=== PATIENT | female | born 1995 | race Caucasian/White ===

== ENCOUNTER 2020-06-06 16:55 | Outpatient (CLI) | payer OTHER, BC, SELFPAY ==
--- NOTE | ~2020-06-06 | US_ITS ---
EXAMINATION: US OB <= 14 weeks fetus EXAM DATE: 06/06/2020 17:58 INDICATION: Other specified irregular menstruation. Dating. 1st trimester. TECHNIQUE: Pelvic obstetrical transabdominal sonogram was performed by a technologist. There are mu ltiple grayscale and Doppler images available for interpretation. There are no earlier studies of th is gestation for comparison. FINDINGS: Uterus measures 11.0 x 6.1 x 8.0 cm. There is intrauterine gestation sac. pole with heart rate confirmed at 169 beats per minute. The 4.6 cm crown-rump length corresponds to estimated gestational age by ultrasound of 11 weeks 3 days, estimated date of confinement 12/23/2020. Yolk sac is identified. There is no sonographic evidence of subchorionic hemorrhage. Not identified IMPRESSION: Live intrauterine gestation, age by ultrasound 11 weeks 3 days. Reviewed, dictated and finalized at location . CLING DIRECTOR
== END 2020-06-06 16:56 | disposition home or self-care (01) ==
PROVIDERS: PCP Internal Medicine; Visit Provider Obstetrics & Gynecology
DX: Z34.91 Encounter for supervision of normal pregnancy, unspecified, first trimester (principal); Z3A.11 11 weeks gestation of pregnancy
CPT/HCPCS: 76801

== ENCOUNTER 2020-06-19 16:54 | Outpatient (CLI) | payer OTHER, BC, SELFPAY ==
[2020-06-19 17:34] LABS: Hematocrit 39.4 % (37.0-47.0); Hemoglobin 13.7 g/dL (12.0-15.0); Mean Corpuscular HGB Conc 34.8 g/dl (32-36); Mean Corpuscular Hemoglobin 32.2 pg (26-34); Mean Corpuscular Volume 92.7 fl (80-100); Mean Platelet Volume 10.9 fl (7.4-10.4); Platelet Count Result 271 k/mm3 (150-375); Red Blood Count 4.25 M/mm3 (4.2-5.4); Red Cell Distribution Width 11.3 % (11.5-14.5); White Blood Count 7.6 K/mm3 (4.5-10.0)
[2020-06-19 18:30] LABS: HIV 1/2 Ab P24 Ag Result Negative (Negative)
[2020-06-19 19:04] LABS: Hepatitis B Surface Antigen Negative (Negative); Rubella IgG Antibody 55.5 IU/ML
[2020-06-20 11:13] LABS: Rapid Plasma Reagin Non-Reactive (NonReactive)
== END 2020-06-19 16:55 | disposition home or self-care (01) ==
LOC: ANHLAB 16:57
PROVIDERS: PCP Internal Medicine; Visit Provider Obstetrics & Gynecology
DX: N92.5 Other specified irregular menstruation (principal)
CPT/HCPCS: 36415; 84702; 85027; 86592; 86644; 86703; 86747; 86762; 86787; 86900; 86901; 87086; 87340; G0432

== ENCOUNTER 2020-09-01 09:03 | Outpatient (CLI) | payer OTHER, SELFPAY ==
--- NOTE | ~2020-09-01 | US_ITS ---
EXAMINATION: US OB /maternal detail DATE: 09/01/2020 12:21 INDICATION: Routine care. TECHNIQUE: Real-time ultrasound of the pelvis was performed. COMPARISON: Ultrasound 06/06/2020 FINDINGS: There is a single living fetus in breech presentation. The placenta is anterior, 8 cm from the cervi x. heart rate is 138 beats per minute (bpm). The cervical length is normal on transabdominal im ages. The amniotic fluid volume is subjectively normal. The following biometric data were obtained: Biparietal diameter (BPD): 5.5 cm; head circumference (HC): 20.8 cm; abdominal circumference (AC): 17 .7 cm; femur length (FL): 3.9 cm. These measurements are concordant. Estimated weight is 512 g +/- 77 g, which correlates with 10th percentile when 12/26/20 is used a s estimated date of delivery. As single measurements, these parameters are each equal to the following estimated gestational ages: BPD: 22 weeks 5 days. HC: 22 weeks 6 days. AC: 22 weeks 4 days. FL: 22 weeks 2 days. estimated gestational age based solely on measurements from this exam is 22 weeks 4 days +/- 1 weeks 4 days. The cerebral ventricles, cerebellum, cisterna magna, nuchal fold, and visualized portions of the spin e are normal. The heart is normal. The diaphragm, stomach, kidneys, and bladder are normal. There are two umbilical arteries to yield a 3-vessel cord. The cord insertion is normal. IMPRESSION: 1. Single living fetus in breech presentation. 2. Estimated weight is 512 g +/- 77 g, which correlates with 10th percentile when 12/26/20 is us ed as estimated date of delivery. 3. Normal anatomic survey. Reviewed, dictated and finalized at location A. IMPRESSION: 1. Single living fetus in breech presentation. 2. Estimated weight is 512 g +/- 77 g, which correlates with 10th percen tile when 12/26/20 is used as estimated date of delivery. 3. Normal anatomic survey.
== END 2020-09-01 09:04 | disposition home or self-care (01) ==
LOC: ANHIMG 09:22
PROVIDERS: PCP Internal Medicine; Visit Provider Obstetrics & Gynecology
DX: Z34.92 Encounter for supervision of normal pregnancy, unspecified, second trimester (principal); Z3A.22 22 weeks gestation of pregnancy
CPT/HCPCS: 76805

== ENCOUNTER 2020-09-22 07:41 | Outpatient (CLI) | payer OTHER, SELFPAY ==
--- NOTE | ~2020-09-22 | US_ITS ---
US OB follow up DATE: 09/22/2020 09:29 INDICATION: Maternal care for other abnormality and damage TECHNIQUE: Real-time imaging and Doppler analysis COMPARISON: 09/01/2020 and 06/06/2020 obstetrical ultrasound examinations FINDINGS: Live campbell intrauterine gestation, fetus in transverse lie. heart rate of 154 bpm. Anterior placenta, lower margin 9.5 cm above the internal os. Amniotic fluid index measures 12.3 cm. (5th percentile MIKAEL: 9.7 cm; 95th percentile MIKAEL: 22.3 cm) Biparietal diameter 6.63 cm; 26 weeks 5 days estimated gestational age Head circumference 24.71 cm; 26 weeks 6 days Abdominal circumference 21.44 cm; 26 weeks Femur length 4.56 cm; 25 weeks 1 day Composite age by [place] formula based upon the current measurements would be 26 weeks 1 day +/- 1 w eeks 6 days with ALANNAH of 12/28/2020, compared to 12/26/2020 by LMP. Estimated weight is 849.9 +/- 127.5 g Estimated weight-GP: 16.1% Head circumference/abdominal circumference 1.15, within normal range of 1.055-1.22 Femur length/and also edematous 21.26, within normal range of 20.00-24.00 Femur length/head circumference 18.45, slightly below normal range of 18.60-20.40. IMPRESSION: Amniotic fluid index measures 12.3 cm Estimated weight 849.9 +/- 127.5 g Reviewed, dictated and finalized at Location A. Reviewed, dictated and finalized at location A.
== END 2020-09-22 07:42 | disposition home or self-care (01) ==
PROVIDERS: PCP Internal Medicine; Visit Provider Obstetrics & Gynecology
DX: O35.8XX9 Maternal care for other (suspected) fetal abnormality and damage, other fetus (principal); Z3A.26 26 weeks gestation of pregnancy
CPT/HCPCS: 76816

== ENCOUNTER 2020-10-05 12:07 | Outpatient (CLI) | payer OTHER, SELFPAY ==
[2020-10-05 13:22] LABS: Basophils Percent Auto 0.2 % (0.2-1.2); Eosinophils Absolute Auto 0.1 K/mm3 (0-0.3); Eosinophils Percent Auto 0.7 % (0-4.4); Hemoglobin 12.6 g/dL (12.0-15.0); Immature Granulocyte Absolute 0.03 K/mm3 (0.00-0.031); Immature Granulocyte Percent A 0.4 % (0-0.5); Lymphocytes Absolute Auto 1.14 K/mm3 (0.9-3.2); Lymphocytes Percent Auto 13.8 % (18.3-44.2); Mean Corpuscular HGB Conc 34.1 g/dl (32-36); Mean Corpuscular Hemoglobin 32.1 pg (26-34); Mean Corpuscular Volume 94.1 fl (80-100); Mean Platelet Volume 10.7 fl (7.4-10.4); Monocytes Absolute Auto 0.4 K/mm3 (0.1-0.6); Monocytes Percent Auto 4.9 % (2.6-8.5); Neutrophils Absolute Auto 6.6 K/mm3 (1.3-6.7); Platelet Count Result 256 k/mm3 (150-375); Red Blood Count 3.93 M/mm3 (4.2-5.4); Red Cell Distribution Width 12.3 % (11.5-14.5); White Blood Count 8.3 K/mm3 (4.5-10.0)
[2020-10-05 13:35] LABS: Glucose 1 Hour PP 50gm Dose 130 mg/dL
[2020-10-05 14:15] LABS: HIV 1/2 Ab P24 Ag Result Negative (Negative)
== END 2020-10-05 12:08 | disposition home or self-care (01) ==
PROVIDERS: PCP Internal Medicine; Visit Provider Obstetrics & Gynecology
DX: Z34.92 Encounter for supervision of normal pregnancy, unspecified, second trimester (principal)
CPT/HCPCS: 36415; 82947; 85025; 86703; 86850; G0432

== ENCOUNTER 2020-10-20 10:34 | Outpatient (CLI) | payer OTHER, SELFPAY ==
--- NOTE | ~2020-10-20 | US_ITS ---
EXAMINATION: US OB follow up DATE: 10/20/2020 11:05 INDICATION: Small for estimated gestational age at the 3rd trimester of . Assess growt h. TECHNIQUE: Real-time ultrasound of the pelvis was performed. The interpreting radiologist was not pre sent for the study. COMPARISON: 09/22/2020 FINDINGS: There is a single living fetus in transverse lie. The placenta is anterior. heart rate is 141 beats per minute (bpm). The amniotic fluid index is 17.3 cm, which is normal (5th%-95%: 9.7-23.4 cm at 30 weeks estimated gestational age). The following biometric data were obtained: BPD: 7.4 cm -> 29 weeks 4 days Head circumference: 27.6 cm -> 30 weeks 1 days Abdominal circumference: 23.9 cm -> 28 weeks 1 days Femur length: 5.3 cm -> 28 weeks 1 days These measurements are concordant. Head circumference to abdominal circumference ratio: 1.15 (normal range 0.99-1.21). Estimated weight: 1234 g (+/-) 185 g. or 2 lbs. 12 oz. (+/-) 7 oz. IMPRESSION: 1. Single living fetus in transverse lie with heart rate of 141 bpm. 2. Normal amniotic fluid index of 17.3 cm. 3. Estimated weight is <3rd percentile by Hadlock criteria (previously 16th percentile) when 12/26/2020 is used as the estimated date of delivery (ALANNAH). Please correlate with clinical information or earlier ultrasounds for most accurate ALANNAH. Reviewed, dictated and finalized at location A. IMPRESSION: 1. Single living fetus in transverse lie with heart rate of 141 bpm. 2. Normal amniotic fluid index of 17.3 cm. 3. Estimated weight is <3rd percentile by Hadlock criteria (previously 16 th percentile) when 12/26/2020 is used as the estimated date of delivery (ALANNAH). P lease correlate with clinical information or earlier ultrasounds for most accur ate ALANNAH.
== END 2020-10-20 10:35 | disposition home or self-care (01) ==
PROVIDERS: PCP Internal Medicine; Visit Provider Obstetrics & Gynecology
DX: Z34.92 Encounter for supervision of normal pregnancy, unspecified, second trimester (principal); Z3A.00 Weeks of gestation of pregnancy not specified
CPT/HCPCS: 76816

== ENCOUNTER 2020-11-01 07:37 | Outpatient (RCR) | payer OTHER, SELFPAY ==
[2020-10-22 09:15] VITALS: BP 126/75; PULSE 121
[2020-10-25 08:17] VITALS: BP 109/67; PULSE 91
[2020-10-29 08:59] VITALS: BP 102/58; PULSE 86
--- NOTE | ~2020-11-01 | US_ITS ---
EXAMINATION: US OB BPP wo non-stress, US umbilical doppler DATE: 10/29/2020 08:43 INDICATION: Small for gestational age during third trimester . TECHNIQUE: Real-time pelvic ultrasound was performed. The interpreting radiologist was not present fo r the study. COMPARISON: None. FINDINGS: There is a single living fetus in vertex presentation. The placenta is anterior. heart rate is 147 beats per minute (bpm). Amniotic fluid volume is subjectively normal. Biophysical profile performed by the technologist: breathing (30 sec sustained breathing in 30 minutes): 2 out of 2 movement (3 gross body movements in 30 minutes): 2 out of 2 tone (one episode of thjquhi-zhlfilcqp-ajlyhca limb movement): 2 out of 2 Amniotic fluid pocket (2 cm): 2 out of 2 Total score: 8 out of 8 The umbilical artery demonstrates a peak systolic and diastolic velocity ratio of 3.0 at the fetus, 2 .5 in the mid cord and 3.4 near the placenta (5th%-95%: 2.2-4.0 at 31 weeks). IMPRESSION: 1. Single living fetus in vertex presentation with heart rate of 147 bpm. 2. Biophysical profile 8 out of 8. 3. Normal umbilical arterial peak systolic to diastolic ratios of 2.5-3.4. Reviewed, dictated and finalized at location A. IMPRESSION: 1. Single living fetus in vertex presentation with heart rate of 147 bpm. 2. Biophysical profile 8 out of 8. 3. Normal umbilical arterial peak systolic to diastolic ratios of 2.5-3.4.
--- NOTE | ~2020-11-01 | US_ITS ---
EXAMINATION: US OB BPP wo non-stress, US umbilical doppler DATE: 10/22/2020 08:59 INDICATION: IUGR, third trimester TECHNIQUE: Real-time pelvic ultrasound was performed. The interpreting radiologist was not present fo r the study. COMPARISON: None. FINDINGS: There is a single living fetus in vertex presentation. The placenta is anterior. heart rate is 150 beats per minute (bpm). Biophysical profile performed by the technologist: breathing (30 sec sustained breathing in 30 minutes): 2 out of 2 movement (3 gross body movements in 30 minutes): 2 out of 2 tone (one episode of czdyspv-yvbkfkxah-hhvxqog limb movement): 2 out of 2 Amniotic fluid pocket (2 cm): 2 out of 2 Total score: 8 out of 8. Umbilical artery pulsed Doppler demonstrates peak systolic to end-diastolic velocity ratios (S/D rati os) of 2.2 and 2.1 near the fetus, 3.0 and 3.3 in the mid cord, and 3.3 and 2.4 near the placenta (5t h percentile = 2.26, 95th percentile = 2.9). IMPRESSION: 1. Single living fetus in vertex presentation. 2. Biophysical profile 8 out of 8. 3. Elevated umbilical artery Doppler ratios in the mid cord. Reviewed, dictated and finalized at location A. IMPRESSION: 1. Single living fetus in vertex presentation. 2. Biophysical profile 8 out of 8. 3. Elevated umbilical artery Doppler ratios in the mid cord.
[2020-11-01 08:12] VITALS: BP 109/64; PULSE 96
== END 2020-12-25 15:40 | disposition home or self-care (01) ==
LOC: ANHOBOP 07:37
PROVIDERS: PCP Internal Medicine; Visit Provider Obstetrics & Gynecology
DX: O36.5930 Maternal care for other known or suspected poor fetal growth, third trimester, not applicable or unspecified (principal); Z3A.30 30 weeks gestation of pregnancy; Z3A.31 31 weeks gestation of pregnancy; Z3A.32 32 weeks gestation of pregnancy
CPT/HCPCS: 59025; 76819; 76820

== ENCOUNTER 2020-12-25 09:14 | Inpatient (IN) | payer OTHER, SELFPAY ==
--- NOTE | 2020-11-23 13:05 | PC.NURSE ---
DR RINALDI FROM ANESTHESIA TALKED WITH PATIENT ABOUT HER H/O BROKEN LOWER BACK CHILD. EXAMINED PATIENT LOWER BACK
[2020-12-25] VITALS (98 sets, daily range): BP systolic 94–187; BP diastolic 35–169; PULSE 75–160; RESP 13–17; TEMP 36.6–37.3; O2SAT 97–100; BMI 31.6
--- NOTE | 2020-12-25 09:53 | WPDANESEPP ---
Anes - Eval Pre Procedure Procedure: labor epidural Date/Time: 12/25/20 09:53 Preop Diagnosis: labor pain Pre Op Diagnosis: iol Patient Data Age: 25 Gender: F Height: Weight: Last Vital Signs Pulse 99 12/25/20 09:45 BP 137/93 H 12/25/20 09:45 Allergies Allergy/AdvReac Type Severity Reaction Status Date / Time No Known Allergies Allergy Verified 11/23/20 12:41 Home Medications Medication Instructions Recorded Confirmed Type PNV cmb#95-ferrous fumarate-FA 1 tablet PO HS 10/22/20 10/22/20 History [] lamotrigine 50 mg PO DAILY 10/22/20 10/22/20 History Patient hx anesthesia problems: none Family hx anesthesia problems: none PMFSH Family History Family History (Updated 11/23/20 @ 12:46 by Agnes Schultz RN) Grandparent Liver cancer Colon cancer Prostate carcinoma Mother EDS (Cely-Danlos syndrome) Graves disease Fibromyalgia Social History Social History Substance use: never Spiritual care concerns: No Exam Day of Procedure 12/25/20 09:53
[2020-12-25 10:03] LABS: Basophils Percent Auto 0.4 % (0.2-1.2); Eosinophils Absolute Auto 0.1 K/mm3 (0-0.3); Eosinophils Percent Auto 0.7 % (0-4.4); Hematocrit 37.4 % (37.0-47.0); Hemoglobin 12.9 g/dL (12.0-15.0); Immature Granulocyte Absolute 0.02 K/mm3 (0.00-0.031); Immature Granulocyte Percent A 0.2 % (0-0.5); Lymphocytes Absolute Auto 1.54 K/mm3 (0.9-3.2); Lymphocytes Percent Auto 18.3 % (18.3-44.2); Mean Corpuscular HGB Conc 34.5 g/dl (32-36); Mean Corpuscular Hemoglobin 31.9 pg (26-34); Mean Corpuscular Volume 92.3 fl (80-100); Mean Platelet Volume 12.4 fl (7.4-10.4); Monocytes Absolute Auto 0.4 K/mm3 (0.1-0.6); Monocytes Percent Auto 5.1 % (2.6-8.5); Neutrophils Absolute Auto 6.3 K/mm3 (1.3-6.7); Neutrophils Percent Auto 75.3 % (45.5-73.1); Platelet Count Result 221 k/mm3 (150-375); Red Blood Count 4.05 M/mm3 (4.2-5.4); Red Cell Distribution Width 12.8 % (11.5-14.5); White Blood Count 8.4 K/mm3 (4.5-10.0)
--- NOTE | 2020-12-25 10:10 | LDADM ---
This patient, Kelley Brewer, was admitted to Labor/Delivery/Recovery 108 on 12/25/20 at 09:14. Plans for labor, pain management and were discussed with patient. Patient/family oriented to hospital policies and general routines including ID bracelet, bed and alarms, visiting hours, pain management, procedures, bathroom and other care routines, personal items, smoking policy, room service/diet and guest tray routines, security routines, and visiting hours. Patient/Family are encouraged to report perceived risks to care and to ask questions if they do not understand what they are told or what they should do. See OBIX for further documentation.
[2020-12-25] MEDS: DINOPROSTONE 10 MG VAG INSERT VAGINAL (11:27)
--- NOTE | 2020-12-25 11:48 | P.HP_ITS ---
H&P: HPI History of Present Illness Date/Time: 12/25/20 11:39 Kelley is a 25yo @ 39.6 (ALANNAH 12/26/20) who presents for elective induction of labor. She reports good movement. No VB or LOF. She is having irregular contractions. She has had regular care. When placed on the monitor on L&D she was found to have a prolonged decel to 90's x 5minutes. Her is complicated by: - H/o back injury; s/p anesthesia consult and ok to get epidural - concern for IUGR @ 30wks; MFM consult and normal growth/dopplers on outside US Chief Complaint: induction of labor Review of Systems Review of Systems: All systems reviewed & are unremarkable except as noted in HPI and below (HPI) [facility] Family History Family History (Updated 11/23/20 @ 12:46 by Agnes Schultz RN) Grandparent Liver cancer Colon cancer Prostate carcinoma Mother EDS (Cely-Danlos syndrome) Graves disease Fibromyalgia Social History Social History Smoking status: Never smoker Substance use: never Spiritual care concerns: No Meds Home Medications and Allergies Home Medications Medication Instructions Recorded Confirmed Type PNV cmb#95-ferrous fumarate-FA 1 tablet PO HS 10/22/20 10/22/20 History [] lamotrigine 50 mg PO DAILY 10/22/20 10/22/20 History Allergies Allergy/AdvReac Type Severity Reaction Status Date / Time No Known Allergies Allergy Verified 11/23/20 12:41 Exam Const: General: cooperative, healthy appearing and no acute distress Resp: Effort & Inspection: normal respiratory effort and able to speak in complete sentences Cardio: Rate: regular rate GI: GI Palp: No abdominal tenderness and Yes Soft to palpation : Other: FHT's: 150's/ mod abelardo/ + accels/ prolonged decel x5 min to 90s; now no decels TOCO:ctx q3-5min Cervix: 1/60/-2 Membranes: intact Presentation: cephalic Assessment and Plan Assessment and plan (1) : Qualifiers: Weeks of gestation: 39 weeks Qualified Code(s): Z3A.39 - 39 weeks gestation of Code(s): Z34.90 - Encounter for supervision of normal , unspecified, unspecified trimester Status: Acute (2) Encounter for induction of labor: Code(s): Z34.90 - Encounter for supervision of normal , unspecified, unspecified trimester Status: Acute Additional Plan - Admit to L&D for IOL - cervical ripening w/ cervidil - continuous monitoring - Anesthesia consult PRN pain - GBS neg
--- NOTE | 2020-12-25 15:30 | PM.OBPNLAB ---
Pain Control Date/time seen: 12/25/20 15:30 Pain control: tolerating well Pelvic Exam Dilation (cm): 1 Effacement (%): 60 station: -2 Amniotic membrane status: Ruptured (AROM, thick mec @ 1530) Contractions Monitor mode: External Contraction frequency: 3 Contraction pattern: Regular Status status: Category ll Comments: having prolonged decels that recover w/ intrauterine resuscitation Assessment and Plan Assessment: induction ongoing Plan: continuous present management Comments: cervidil pulled due to decels AROM; thick mec noted IUPC placed monitoring closely
[2020-12-25] MEDS: LACTATED RINGERS 1,000 ML 125 ML IV CONT (16:29)
[2020-12-25] MEDS: SODIUM CHLORIDE 0.9% IV 300 ML 600 ML I-UTERINE (16:42)
--- NOTE | 2020-12-25 17:49 | PM.OBPNLAB ---
Pain Control Date/time seen: 12/25/20 17:49 Pelvic Exam Dilation (cm): 2 Effacement (%): 60 station: -2 Amniotic membrane status: Ruptured (AROM, thick mec @ 1530) Contractions Monitor mode: Internal Contraction frequency: 2 Contraction pattern: Regular Contraction intensity: Moderate (adequate) Status status: Category ll Comments: good variability but recurrent lates continued Assessment and Plan Plan: Comments: amnio infusion going intrauterine resuscitation has not worked pt to proceed with pLTCS due to intolerance
--- NOTE | 2020-12-25 17:51 | WPDHPUPDATE1 ---
History and Physical Update Update Date/Time: 12/25/20 17:51 History and Physical has been reviewed, including an updated exam of the patient. There are NO changes in the patient's condition. Risks, benefits, and alternatives have been discussed and questions answered. Patient agrees to proceed with procedure.
[2020-12-25] MEDS: ceFAZolin 2 GM/D5W 50 ML 2 GM/50 ML BAG IVPB (18:02)
--- NOTE | 2020-12-25 18:29 | WPDANESEPP ---
Anes - Eval Pre Procedure Procedure: primary Date/Time: 12/25/20 18:29 Surgeon: jessie Pre Op Diagnosis: iol Patient Data Age: 25 Gender: F Height: 1.7 m Weight: 91.5 kg Last Vital Signs Temp 36.6 C 12/25/20 16:33 Pulse 154 H 12/25/20 17:46 BP 119/80 12/25/20 17:46 Pulse Ox 100 12/25/20 17:44 Allergies Allergy/AdvReac Type Severity Reaction Status Date / Time No Known Allergies Allergy Verified 11/23/20 12:41 Home Medications Medication Instructions Recorded Confirmed Type PNV cmb#95-ferrous fumarate-FA 1 tablet PO HS 10/22/20 12/25/20 History [] lamotrigine 50 mg PO DAILY 10/22/20 12/25/20 History Laboratory Tests 12/25/20 12/25/20 12/25/20 09:42 09:42 09:42 WBC 8.4 K/mm3 K/mm3 (4.5-10.0) RBC 4.05 M/mm3 L M/mm3 (4.2-5.4) Hgb 12.9 g/dL g/dL (12.0-15.0) Hct 37.4 % % (37.0-47.0) MCV 92.3 fl fl (80-100) MCH 31.9 pg pg (26-34) MCHC 34.5 g/dl g/dl (32-36) RDW 12.8 % % (11.5-14.5) Plt Count 221 k/mm3 k/mm3 (150-375) MPV 12.4 fl H fl (7.4-10.4) Immature Gran % (Auto) 0.2 % % (0-0.5) Neut % (Auto) 75.3 % H % (45.5-73.1) Lymph % (Auto) 18.3 % % (18.3-44.2) [place] % (Auto) 5.1 % % (2.6-8.5) Eos % (Auto) 0.7 % % (0-4.4) Baso % (Auto) 0.4 % % (0.2-1.2) Lymph # (Auto) 1.54 K/mm3 K/mm3 (0.9-3.2) [place] # (Auto) 0.4 K/mm3 K/mm3 (0.1-0.6) Eos # (Auto) 0.1 K/mm3 K/mm3 (0-0.3) Baso # (Auto) 0.0 K/mm3 K/mm3 (0.0-0.1) Abs Immat Gran (auto) 0.02 K/mm3 K/mm3 (0.00-0.031) Absolute Neuts (auto) 6.3 K/mm3 K/mm3 (1.3-6.7) Absolute Nucleated RBC 0.0 K/mm3 K/mm3 (0.0-0.012) Nucleated RBC % 0.0 % % (0.0-0.2) RPR Pending Blood Type A Positive Antibody Screen Negative Patient hx anesthesia problems: none Family hx anesthesia problems: none [facility] Family History Family History (Updated 11/23/20 @ 12:46 by Agnes Schultz RN) Grandparent Liver cancer Colon cancer Prostate carcinoma Mother EDS (Cely-Danlos syndrome) Graves disease Fibromyalgia Social History Social History Smoking status: Never smoker Substance use: never Spiritual care concerns: No Exam Day of Procedure 12/25/20 18:29
--- NOTE | 2020-12-25 19:01 | PM.OBPRVD ---
OB - Delivery Note Procedure Delivery date: 12/25/20 events: Labor Induction and Meconium Stained Fluid Intrapartal events: Intolerance and Deceleration Induction method: per cervidil protocol Delivery augmentation: rupture of membranes Delivery monitor: internal FHT and internal uterine Route of delivery: Quantitative Blood Loss (ml): 505 Anesthesia type: Epidural Disposition: floor [place] Baby Date of : 12/25/20 Time of : 18:25 Weeks of gestation at delivery: 39 (.6) Infant gender: Female Weight (pounds): 6 Weight (ounces): 4 presentation: vertex position: Left Occiput Anterior Placenta delivery description: Expressed cord vessel description: 3 Vessels (short, tortuous ) score one minute: 8 score five minutes: 9 Narrative: She was counseled on all risks and benefits in detail due to non-reassuring heart rate tracing. She was taken to the operating room where epidural was found to be adequate. She was then prepped and draped in the normal sterile fashion. She received 2g Ancef and a time out was performed. A Pfannenstiel incision was made in the skin and carried down to the underlying fascia. The fascia was nicked on either side of the midline and the fascial incision was extended laterally and superiorly. The fascia was then elevated and the underlying rectus muscles were dissected off the fascia, superiorly and inferiorly. The rectus muscles were then in the midline and the peritoneum was entered bluntly. Once adequate exposure was obtained, a Mobius self retractor was placed within the abdomen. A bladder flap was created. A low transverse incision was made on the lower uterine segment and clear fluid was noted. The occiput was brought to the hysterotomy and the head was easily delivered. The shoulder and body then followed without complications. The had spontaneous cry and the mouth and nose were bulb suctioned. The cord was clamped and cut and the infant was handed off to the awaiting pediatric nurse. A segment of the cord was collected for cord gases. The remaining cord blood was collected for typing. With pitocin infusing, the placenta delivered with gentle traction on the cord without complications. The uterus was then cleared out of all clots and debris using a clean, moist lap. The hysterotomy was then repaired in a running, interlock fashion using 0 Vicryl. A second layer imbricating suture was then made using 0 Vicryl. The hysterotomy was found to be hemostatic and good uterine tone was noted. The bilateral adnexa were examined and found to be normal. The pelvis was cleared of all clots and fluid. The Mobius retractor was removed from the abdomen. The peritoneum, muscle, and fascia were examined and made hemostatic with bovie cautery. The fascia was then repaired using a 0 Vicryl suture in a running fashion. The subcutaneous tissue was then irrigated and made hemostatic with bovie cautery. The subcutaneous tissue was then reapproximated using 2-0 Vicryl. The skin was then closed using 4-0 Monocryl in a running subcuticular fashion. A Mepilex dressing was placed over the incision. Sponge, lap, needle and instrument counts were correct at the end of the procedure x2. The patient tolerated the procedure well and was taken to recovery in a stable condition.
[2020-12-25] MEDS: OXYTOCIN 30 UNITS/NS 500 ML 30 UNITS/500 ML BAG 125 UNITS IV CONT (20:52)
--- NOTE | 2020-12-25 22:15 | PC.NURSE ---
pt taken with infant and significant other to window to visit with family before going upstairs to 276. Belongings and to room with pt and significant other. Report given to JUNAID Thompson.
[2020-12-26] MEDS: DEXTROSE 5%/0.45% SOD CHL 1,000 ML 125 ML IV CONT (01:30)
[2020-12-26] MEDS: KETOROLAC 30 MG/ML VIAL (*BKC) IV PUSH (04:34)
[2020-12-26 05:50] VITALS: BP 103/58; PULSE 82; RESP 12; TEMP 36.8; O2SAT 98
[2020-12-26 05:57] LABS: Basophils Percent Auto 0.2 % (0.2-1.2); Eosinophils Percent Auto 0.3 % (0-4.4); Hematocrit 29.7 % (37.0-47.0); Hemoglobin 9.8 g/dL (12.0-15.0); Immature Granulocyte Absolute 0.03 K/mm3 (0.00-0.031); Immature Granulocyte Percent A 0.3 % (0-0.5); Lymphocytes Absolute Auto 1.15 K/mm3 (0.9-3.2); Lymphocytes Percent Auto 13.4 % (18.3-44.2); Mean Corpuscular Hemoglobin 31.5 pg (26-34); Mean Corpuscular Volume 95.5 fl (80-100); Monocytes Absolute Auto 0.6 K/mm3 (0.1-0.6); Monocytes Percent Auto 6.9 % (2.6-8.5); Neutrophils Absolute Auto 6.8 K/mm3 (1.3-6.7); Neutrophils Percent Auto 78.9 % (45.5-73.1); Platelet Count Result 158 k/mm3 (150-375); Red Blood Count 3.11 M/mm3 (4.2-5.4); White Blood Count 8.6 K/mm3 (4.5-10.0)
--- NOTE | 2020-12-26 06:35 | PM.OBPNVD ---
OB - PN: Subj Subjective Date/time seen: 12/26/20 06:31 POD#1 Kelley reports doing well. Her pain is controlled. She has not ambulated. She has not tried regular diet; tolerated clears w/o issue. Her catheter is still in place. She has passed gas. She reports her bleeding is getting cardiovascular surgeon. She is breast feeding. She denies CP, SOB, ABBOTT, vision changes, N/V, dizziness or palpitations. OB - PN: Obj Data Labs CBC & Chem 7: 12/26/20 05:41 Labs: Laboratory Results - last 24 hr 12/25/20 12/26/20 09:42 05:41 WBC 8.6 RBC 3.11 L Hgb 9.8 L D Hct 29.7 L MCV 95.5 MCH 31.5 MCHC 33.0 RDW 13.0 Plt Count 158 MPV 12.0 H Immature Gran % (Auto) 0.3 Neut % (Auto) 78.9 H Lymph % (Auto) 13.4 L [place] % (Auto) 6.9 Eos % (Auto) 0.3 Baso % (Auto) 0.2 Lymph # (Auto) 1.15 [place] # (Auto) 0.6 Eos # (Auto) 0.0 Baso # (Auto) 0.0 Abs Immat Gran (auto) 0.03 Absolute Neuts (auto) 6.8 H Absolute Nucleated RBC 0.0 Nucleated RBC % 0.0 RPR Non-reactive OB - PN A/P Assessment and Plan (1) S/P section: Code(s): Z98.891 - History of uterine scar from previous surgery Status: Acute Plan day: 1 Plan: routine care Time Spent With Patient Time: Total time spent is greater than 50% in coordination of care (as documented) at patient's floor/unit and/or counseling patient: Review of Systems Review of Systems: All systems reviewed & are unremarkable except as noted in HPI and below (HPI) Exam Const: General: cooperative, healthy appearing, comfortable and no acute distress Resp: Effort & Inspection: normal respiratory effort and able to speak in complete sentences Auscultation: clear to auscultation bilaterally Cardio: Rate: regular rate GI: Inspection: non-distended and incision (covered w/ clean dressing) GI Palp: No abdominal tenderness and Yes Soft to palpation Auscultation: normal bowel sounds Urinary Catheter: Urinary Catheter: patent and draining Skin: General skin exam: normal color Neuro: General: patient oriented x3 Extrem: General: normal to inspection Psych: Appearance: grossly normal Affect: normal affect Attitude: cooperative
[2020-12-26 07:50] VITALS: BP 111/68; PULSE 75; RESP 16; TEMP 37.2; O2SAT 98
[2020-12-26] MEDS: DOCUSATE SODIUM 100 MG CAPSULE PO ×2 (08:54→16:13)
[2020-12-26] MEDS: MULTIVIT/MIN/PREN/FOL AC/IRON TABLET 1 TAB PO (08:54)
[2020-12-26] MEDS: POLYSACCHARIDE IRON COMPLEX 150 MG CAPSULE PO ×2 (08:54→16:13)
--- NOTE | 2020-12-26 09:24 | WPDANLDNPN2 ---
Anes-Prog Note L&D-Neuraxial Date/Time: 12/26/20 09:24 Neuraxial medications: intrathecal PF morphine Opiod-related complaints: none Patient feedback: Patient satisfied with post-operative pain management.
--- NOTE | 2020-12-26 09:24 | WPDANLDPN2 ---
Anes-Prog Note L&D Date/Time: 12/26/20 09:24 Comfortable throughout: section Neuraxial method: spinal Epidural/Spinal procedure site: clean & non-tender Neuro status: Neuro function grossly intact. Cardiovascular status: normal Respiratory status: normal Airway patency: baseline Mental status: baseline Post-Op hydration status: normal (zuleta still in place) Vital Signs: Last Vital Signs Temp 36.8 C 12/26/20 05:50 Pulse 82 12/26/20 05:50 Resp 12 12/26/20 05:50 BP 103/58 L 12/26/20 05:50 Pulse Ox 98 12/26/20 05:50 Pain score (VAS): 0 I/O: Intake & Output 12/25/20 12/26/20 12/26/20 23:59 07:59 15:59 Output Total 160 325 Balance -160 -325 Post-procedural complaints: none Patient feedback: Patient satisfied with anesthetic care.
--- NOTE | 2020-12-26 11:45 | PC.NURSE ---
Mother called out for assist with feeding. Mother reports infant is sleepy at breast with slight tenderness. Reviewed infant feeding cues, frequencies, duration of feedings, feeding elimination flow sheet, and signs of adequate intake. Demonstrated stimulation techniques to wake infant for feeding. Assisted with to breast. Reviewed positioning/alignment in cross cradle, holding breast in ?U? hold and guided asymmetrical latch on. able to latch correctly within a few attempts. nursed eagerly with steady draws and occasional swallowing followed with long pausing. Reviewed signs of a correct latch, effective nursing and suck swallow ratio. would slip to shallow latch, mother reports tenderness. Demonstrated how to adjust latch more deeply while feeding. Suggested mother stimulate while feeding to increase stimulate, increase intake and to assist with maintaining deep latch. Mother reports she can feel change in latch and has no tenderness. Suggested mother stimulate while feeding to increase stimulate, increase intake and to assist with maintaining deep latch. Nipple care reviewed of lanolin after feedings, warm compresses as needed. Instructed mother to call out for RN assistance if she is unable to latch infant for feeding or she has discomfort with nursing. Instructed feeding should be initiated three hours from start of last feeding or if feeding cues are noted before. Mother voiced understanding of information shared
[2020-12-26 12:00] VITALS: BP 107/73; PULSE 74; RESP 16; TEMP 37.1; O2SAT 98
[2020-12-26 12:11] LABS: Rapid Plasma Reagin Non-Reactive (NonReactive)
[2020-12-26] MEDS: IBUPROFEN 600 MG TABLET PO ×2 (12:12→19:17)
[2020-12-26] MEDS: HYDROcodone/acetaminophen (*CRX) 5-325 MG TABLET 1 TAB PO ×2 (12:13→16:14)
[2020-12-26] MEDS: SIMETHICONE 80 MG TAB.CHEW PO ×2 (14:14→16:14)
--- NOTE | 2020-12-26 15:15 | PC.NURSE ---
Mother called out for assist with feeding. Reporting was sleepy and needed assist to wake. Demonstrated stimulation techniques to wake infant for feeding. Several minutes of stimulation to wake . Advised to unwrap, change diaper and gentle rub back and feet to wake. Assisted with to breast. Reviewed positioning/alignment in cross cradle, holding breast in ?U? hold and guided asymmetrical latch on. Infant able to latch correctly. Infant nursed eagerly, with steady draws and occasional swallowing noted followed with long pausing. Suggested mother stimulate while feeding to increase stimulate, increase intake and to assist with maintaining deep latch. Reviewed signs of a correct latch, effective nursing and suck swallow ratio. would slip to shallow latch, mother reports tenderness. Demonstrated how to adjust latch more deeply while feeding. Mother reports she can feel change in latch and has no tenderness. Nipple care reviewed of lanolin after feedings, warm compresses as needed. Instructed mother to call out for RN assistance if she is unable to latch for feeding or she has discomfort with nursing.
[2020-12-26 15:30] VITALS: BP 113/70; PULSE 78; RESP 20; TEMP 37.4; O2SAT 99
[2020-12-26 19:15] VITALS: BP 129/76; PULSE 95; RESP 16; TEMP 36.8; O2SAT 100
[2020-12-26] MEDS: HYDROcodone/acetaminophen (*CRX) 10-325 MG TABLET 1 TAB PO (19:17)
[2020-12-27] MEDS: HYDROcodone/acetaminophen (*CRX) 5-325 MG TABLET 1 TAB PO ×4 (00:22→22:36)
[2020-12-27] MEDS: IBUPROFEN 600 MG TABLET PO ×4 (01:40→22:35)
--- NOTE | 2020-12-27 07:25 | PM.OBPNVD ---
OB - PN: Subj Subjective Date/time seen: 12/27/20 07:23 POD#2 Kelley reports doing well today. Her pain is controlled. She has ambulated without issue. She has tolerated regular diet. She has voided and passed gas. She reports her bleeding is light. She is breast feeding. She would like to go home tomorrow. She denies CP, SOB, ABBOTT, vision changes, N/V, dizziness or palpitations. OB - PN: Obj Data Labs CBC & Chem 7: 12/26/20 05:41 OB - PN A/P Assessment and Plan (1) S/P section: Code(s): Z98.891 - History of uterine scar from previous surgery Status: Acute Plan day: 2 Plan: routine care and discharge home (tomorrow) Comments: - f/u in 2 weeks - pelvic rest, no heavy lifting, take meds as prescribed - ER precautions: bleeding, htn, n/v/abd pain, fever Time Spent With Patient Time: Total time spent is greater than 50% in coordination of care (as documented) at patient's floor/unit and/or counseling patient: Review of Systems Review of Systems: All systems reviewed & are unremarkable except as noted in HPI and below (HPI) Exam Const: General: cooperative, healthy appearing, comfortable and no acute distress Resp: Effort & Inspection: normal respiratory effort and able to speak in complete sentences Auscultation: clear to auscultation bilaterally Cardio: Rate: regular rate GI: Inspection: normal to inspection and incision (covered w/ clean dressing) GI Palp: No abdominal tenderness and Yes Soft to palpation Auscultation: normal bowel sounds : Other: fundus firm Skin: General skin exam: normal color Neuro: General: patient oriented x3 Extrem: General: normal to inspection Psych: Appearance: grossly normal Affect: normal affect Attitude: cooperative
[2020-12-27 08:20] VITALS: BP 116/72; PULSE 78; RESP 16; TEMP 36.7; O2SAT 100
[2020-12-27] MEDS: POLYSACCHARIDE IRON COMPLEX 150 MG CAPSULE PO ×2 (08:33→15:17)
[2020-12-27] MEDS: DOCUSATE SODIUM 100 MG CAPSULE PO ×2 (08:33→15:17)
[2020-12-27] MEDS: MULTIVIT/MIN/PREN/FOL AC/IRON TABLET 1 TAB PO (08:33)
--- NOTE | 2020-12-27 19:07 | PC.NURSE ---
Patient viewed the discharge video Mother & Baby Care, The First Two Weeks . Patient was given the opportunity and encouraged to ask questions. Patient verbalized understanding of information shared and has been given the mother/baby guide for home reference.
[2020-12-27 20:00] VITALS: BP 128/82; PULSE 88; RESP 16; RESP 18; TEMP 37.2; O2SAT 100
[2020-12-28] MEDS: POLYSACCHARIDE IRON COMPLEX 150 MG CAPSULE PO (07:48)
[2020-12-28] MEDS: MULTIVIT/MIN/PREN/FOL AC/IRON TABLET 1 TAB PO (07:48)
[2020-12-28] MEDS: DOCUSATE SODIUM 100 MG CAPSULE PO (07:49)
[2020-12-28] MEDS: IBUPROFEN 600 MG TABLET PO (07:50)
[2020-12-28] MEDS: HYDROcodone/acetaminophen (*CRX) 5-325 MG TABLET 1 TAB PO (07:51)
[2020-12-31 09:26] VITALS: BP 119/80; PULSE 95; RESP 14; TEMP 37.2; O2SAT 98
--- NOTE | 2021-01-08 11:11 | PM.OBDSVD ---
DS: Admitting Diagnosis Admitting Diagnosis Admitting Diagnosis: induction of labor DS: Discharge Diagnosis Discharge Diagnosis (1) S/P section: Code(s): Z98.891 - History of uterine scar from previous surgery Status: Acute OB - DS: Summary OB Procedures : Ultrasound OB Procedures Intrapartum: (2/2 intolerance) low cervical, transverse OB Procedures: : None Peripartum Data Delivery Method: Section Procedures: Procedures Operation Date: 12/25/20 18:00 Actual Procedure Side Surgeon p Section Not Applicable Cristina Navarrete MD complications: none [place] 1: Gender: Female Disposition of : home Status at Discharge Functional status at discharge: independent ambulation Overall status at discharge: patient is back to baseline Time Spent with Patient Time attestation: Total time spent providing and/or coordinating discharge services: Time spent: Less than 30 minutes Exam Const: General: cooperative, healthy appearing, comfortable and no acute distress Resp: Effort & Inspection: normal respiratory effort and able to speak in complete sentences Auscultation: clear to auscultation bilaterally Cardio: Rate: regular rate GI: Inspection: incision (covered with clean dressing) GI Palp: No abdominal tenderness and Yes Soft to palpation Auscultation: normal bowel sounds : Other: fundus firm Skin: General skin exam: normal color Neuro: General: patient oriented x3 Extrem: General: normal to inspection Psych: Appearance: grossly normal Affect: normal affect Attitude: cooperative DS: Data Data Completed and Pending Completed studies during hospitalization: Pending at discharge 12/25/20 19:28 Surgical [PTH] Routine Discharge Plan Discharge Attending physician on discharge: Cristina Navarrete Discharging Clinician: Cristina Navarrete Anticipated Discharge Date/Time: 12/28/20 08:00 Patient Disposition: Home, Self-Care Activity: may shower and pelvic rest Diet: regular Wound Care Instructions: incision open to air Discharge Instructions: Education: Mom and Baby Guide Given to: Mother Follow-Up: Call your delivering provider's office for an appointment to be seen in: 3 weeks Mom and baby should come to the [facility] for the follow-up appointment. Appointment Date/Time: Monday, December 28, 2020 at 9:00 am Call [phone] if you are unable to keep your appointment time. BREAST CARE: * Wear a snug supportive bra. * For engorgement discomfort: Breast Feeding: * Apply warm moist washcloths * Express milk as needed to relieve engorgement * Wear loose clothing * For sore nipples: * Identify correct latch-on * Apply warm moist washcloths before and after nursing * Air dry nipples after nursing * May apply Lansinoh cream to nipples ABDOMINAL INCISION: (if applicable) * Allow incision to air dry * Do NOT use lotions for powders on your incision * When showering, allow soap and water to run over the incision, but do not wash incision PERINEAL CARE: * Until bleeding stops, use your jose a bottle after urinating * Change your pad frequently throughout the day * You may take sitz baths several times a day (fill your bathtub with warm water and soak for 20 minutes.) Do NOT bathe in the water * No tub baths until seen by your physician - You may shower ACTIVITY: * Rest as much as possible. * Do not exercise or lift anything heavier than your baby (such as laundry or other children.) * Avoid stairs or driving as much as possible. * Do not put anything into the vagina. No douching, tampons, or sexual activity until seen by physician. NOTIFY PHYSICIAN IF YOU HAVE ANY QUESTIONS OR IF ANY OF THE FOLLOWING SYMPTOMS OCCUR: * If your episiotomy or incision becomes red, s
== END 2020-12-28 13:50 | disposition home or self-care (01) | DRG 788 ==
LOC: ANHLDR 09:18 → ANHOB2 21:41
PROVIDERS: Admitting Provider Obstetrics & Gynecology; PCP Internal Medicine; Visit Provider Obstetrics & Gynecology
PROC: 10D00Z1 Extraction of Products of Conception, Low, Open Approach (ICD-10-PCS; CPT 59514; principal; 2020-12-25 18:00)
DX: O36.8330 Maternal care for abnormalities of the fetal heart rate or rhythm, third trimester, not applicable or unspecified (principal); Z37.0 Single live birth; Z3A.39 39 weeks gestation of pregnancy; O77.0 Labor and delivery complicated by meconium in amniotic fluid
CPT/HCPCS: 36415; 85025; 86592; 86850; 86900; 86901; 88307; A9270; J0131; J0690; J1885; J2175; J2274; J2405; J2590; J2795; J7030; J7120

== ENCOUNTER 2021-02-25 14:00 | Outpatient (CLI) | payer OTHER, SELFPAY ==
[2021-02-25 15:27] LABS: Beta HCG Quantitative < 2.39 mIU/ML
== END 2021-02-25 14:01 | disposition home or self-care (01) ==
PROVIDERS: PCP Internal Medicine; Visit Provider Obstetrics & Gynecology
DX: N92.6 Irregular menstruation, unspecified (principal)
CPT/HCPCS: 36415; 84702

== ENCOUNTER 2023-02-22 09:49 | Emergency (ER) | payer BC, SELFPAY ==
[2023-02-22 10:22] VITALS: BP 129/101; PULSE 105; RESP 16; TEMP 36.7
--- NOTE | 2023-02-22 10:46 | ED.URI ---
HPI - URI/Sore Throat General Chief Complaint: Upper Respiratory Infection Stated Complaint: SORE THROAT/EARACHE/LOSING VOICE/COUGH Time Seen by Provider: 02/22/23 10:47 Source: patient and RN notes reviewed Mode of arrival: ambulatory Limitations: no limitations History of Present Illness HPI Narrative: 27-year-old female presenting for complaint of hoarse voice, nasal drainage, and cough over the past 5 days. Endorses the left ear has started hurting since yesterday, and has a history of ear infections. She denies ear drainage, tinnitus, dizziness, nausea, vomiting, fevers or chills. Not taking anything for symptoms. Took a negative COVID test at home. MD elicited complaint: cough Related Data Home Medications Medication Instructions Recorded Confirmed aripiprazole 5 mg tablet 5 mg PO DAILY 02/22/23 02/22/23 ondansetron 8 mg disintegrating 8 mg PO PRN PRN Nausea 02/22/23 02/22/23 tablet propranolol 10 mg tablet 10 mg PO DAILY 02/22/23 02/22/23 Allergies Allergy/AdvReac Type Severity Reaction Status Date / Time No Known Allergies Allergy Verified 02/22/23 10:19 Review of Systems Review of Systems: CONSTITUTIONAL: Denies malaise, chills, sweats, fever EYES: Denies visual changes, redness, or discharge ENT: Reports rhinorrhea, congestion, otalgia, sore throat CARDIOVASCULAR: Denies chest pain, palpitations, edema RESPIRATORY: Reports cough, post nasal drainage. Denies dyspnea GASTROINTESTINAL: Denies abdominal pain, nausea, vomiting, diarrhea SKIN: Denies rash or itching MUSCULOSKELETAL: Denies myalgia NEUROLOGIC: Denies headache [facility] Family History Family History Grandparent Liver cancer Colon cancer Prostate carcinoma Mother EDS (Cely-Danlos syndrome) Graves disease Fibromyalgia Social History Social History Smoking status: Never smoker Substance use: never Spiritual care concerns: No Exam Narrative: GENERAL: well-appearing, nontoxic no acute distress. HEAD: Normocephalic EYES: PERRLA, conjunctivae clear ENT: Mucous membranes moist. TMs pearly kim with normal light reflex bilaterally; no tragal tenderness. Oropharynx erythematous without lesions or exudate, hoarse voice, no drooling, no trismus, uvula midline. No tripod positioning, muffled voice, soft palate or pharyngeal wall bulging NECK: Supple. No lymphadenopathy CHEST: Clear to auscultation, breath sounds equal. No wheezing, rhonchi, rales, or stridor. No respiratory distress, speaks in full sentences. HEART: Regular rate and rhythm. No murmur heard. SKIN: Warm, dry, no rash. NEURO: Alert and oriented x3. PSYCH: Normal mood and affect Course Course Emergency Course: Patient is aware of diagnosis, understands and agrees to treatment plan. Anticipatory guidance given. Patient agrees to follow-up as directed and is aware of reasons to seek care at the emergency department. Portions of this record may have been created with voice recognition software Level of Care: Express Care Visit Vital Signs Vital signs: Vital Signs Temperature 98.1 F 02/22/23 10:22 Pulse Rate 105 H 02/22/23 10:22 Respiratory Rate 16 02/22/23 10:22 Blood Pressure 129/101 H 02/22/23 10:22 Temperature 98.1 F 02/22/23 10:22 Pulse Rate 105 H 02/22/23 10:22 Respiratory Rate 16 02/22/23 10:22 Blood Pressure 129/101 H 02/22/23 10:22 reviewed MDM - URI/Sore Throat MDM Narrative Medical decision making narrative: Patient declined strep testing. Likely viral. Discussed physical exam findings. Advised supportive measures and signs/symptoms to go to the ER. Pt is appropriate for outpt treatment and f/u. Differential Diagnosis Differential diagnosis: Likely upper respiratory infection, sinusitis and viral infection Discharge Plan Discharge Clinical Impression: Upper respiratory infection Pa
== END 2023-02-22 10:59 | disposition home or self-care (01) ==
PROVIDERS: Emergency Provider Nurse Practitioner Family; PCP Internal Medicine
DX: J06.9 Acute upper respiratory infection, unspecified (principal)
CPT/HCPCS: 99211; G0463

== ENCOUNTER 2024-03-22 12:05 | Outpatient (CLI) | payer BC, SELFPAY ==
[2024-03-22 12:31] LABS: Basophils Absolute Auto 0.1 K/mm3 (0.0-0.1); Basophils Percent Auto 0.6 % (0.2-1.2); Eosinophils Absolute Auto 0.1 K/mm3 (0-0.3); Hematocrit 41.7 % (37.0-47.0); Hemoglobin 14.8 g/dL (12.0-15.0); Immature Granulocyte Absolute 0.02 K/mm3 (0.00-0.031); Immature Granulocyte Percent A 0.3 % (0-0.5); Lymphocytes Absolute Auto 1.87 K/mm3 (0.9-3.2); Lymphocytes Percent Auto 23.9 % (18.3-44.2); Mean Corpuscular HGB Conc 35.5 g/dl (32-36); Mean Corpuscular Volume 93.1 fl (80-100); Mean Platelet Volume 11.3 fl (7.4-10.4); Monocytes Absolute Auto 0.5 K/mm3 (0.1-0.6); Monocytes Percent Auto 6.3 % (2.6-8.5); Neutrophils Absolute Auto 5.3 K/mm3 (1.3-6.7); Neutrophils Percent Auto 67.9 % (45.5-73.1); Platelet Count Result 257 k/mm3 (150-375); Red Blood Count 4.48 M/mm3 (4.2-5.4); Red Cell Distribution Width 11.8 % (11.5-14.5); White Blood Count 7.8 K/mm3 (4.5-10.0)
[2024-03-22 13:22] LABS: HIV 1/2 Ab P24 Ag Result Negative (Negative)
[2024-03-22 13:28] LABS: Hepatitis B Surface Antigen Negative (Negative)
[2024-03-23 15:36] LABS: Rapid Plasma Reagin Non-Reactive (NonReactive)
[2024-03-24 04:04] LABS: Varicella IgG Antibody 4.14 S/CO
== END 2024-03-22 12:06 | disposition home or self-care (01) ==
PROVIDERS: PCP Internal Medicine; Visit Provider Obstetrics & Gynecology
DX: Z34.90 Encounter for supervision of normal pregnancy, unspecified, unspecified trimester (principal)
CPT/HCPCS: 36415; 84702; 85025; 86592; 86644; 86703; 86747; 86762; 86787; 86850; 86900; 86901; 87086; 87340; G0432

== ENCOUNTER 2024-05-29 15:20 | Outpatient (CLI) | payer BC, SELFPAY ==
--- NOTE | ~2024-05-29 | US_ITS ---
COMPLETE AND LIMITED MATERNAL ULTRASOUND (Duplex and color flow interrogation techniques used f or this exam.) Ordering provider: Cristina Navarrete MD History: . Z36.89 - Encounter for other specified screening . Comparison: None. Findings: Number of fetuses: 1. BIOMETRY: BPD: 4.7 cm (20 weeks 1 days) HC: 17.4 cm (20 weeks 0 days) AC: 14.80 cm (20 weeks 0 days) FL: 3.2 cm (19 weeks 6 days) CI: 79.9 FL/BPD: 68.1. HC/AC: 1.2. FL/AC: 21.5 Parametric ratios: Today's average US gestational age: 20 weeks 0 days Today's EDC: October 16, 2024 Estimated weight: 324.9) gm. EFW/GP: 29.1%. SCREENING OF ANATOMY: ( Y =seen and unremarkable.) Cerebellum: y ( 18 mm) Lateral ventricles: y ( 4 mm) Cisterna magna: y ( 4 mm) Nuchal thickness:Y (4mm). Stomach: y Kidneys: y Bladder: y Spine: y Three vessel cord: y Cord insertion: y Four chamber heart: y LVOT: y RVOT: y Lips and nose: y Upper extremity: y Lower extremity: y Cervix: Y ( 31 mm ) Presentation: Vertex. Longitudinal lie. Placental location: Posterior. Previa: N. Amniotic fluid index: Normal. Heart rate: 156 bpm IMPRESSION: Single live fetus of cephalic presentation. Reviewed, dictated and finalized at location A. ASSISTANT
== END 2024-05-29 15:21 | disposition home or self-care (01) ==
PROVIDERS: PCP Obstetrics & Gynecology; Visit Provider Obstetrics & Gynecology
DX: Z36.89 Encounter for other specified antenatal screening (principal)
CPT/HCPCS: 76805

== ENCOUNTER 2024-06-11 10:21 | Emergency (ER) | payer BC, SELFPAY ==
[2024-06-11 11:19] VITALS: BP 120/75; PULSE 95; RESP 16; TEMP 36.8; O2SAT 100
[2024-06-11 12:01] LABS: EDSTREPNEGPOS1 Negative (Negative)
--- NOTE | 2024-06-11 12:06 | ED.GENADULT ---
HPI - General Adult General Chief complaint: Upper Respiratory Infection Stated complaint: Cold Symptoms Source: patient Mode of arrival: ambulatory Limitations: no limitations History of Present Illness HPI narrative: Patient presents for evaluation of sick symptoms for last 2 days. Symptoms include sore throat, fullness in the ears, right-sided nasal congestion, sinus pressure, sensation of head fullness , some thick green drainage from the nares and cough. No fever, shortness of breath, nausea, vomiting or diarrhea. Her daughter is being evaluated here for similar symptoms. She does not smoke or vape. She is currently , 22 weeks gestation. She has already had an ultrasound during this . She denies any vaginal bleeding or abdominal pain. Related Data Home Medications ?Medication ?Instructions ?Recorded ?Confirmed ?Last Taken ?Type propranolol 10 mg tablet 10 mg PO DAILY 02/22/23 05/24/24 Unknown History lamotrigine 25 mg chewable mg PO 02/23/24 05/24/24 Unknown History dispersible tablet ondansetron HCl 4 mg tablet mg PO 02/23/24 05/24/24 Unknown History BYMOUTH 02/23/24 05/24/24 Unknown History vits no.126-ferrous fum tablet 06/11/24 Unknown History 28 mg iron-folic acid 800 mcg tablet (Classic ) Allergies Allergy/AdvReac Type Severity Reaction Status Date / Time No Known Allergies Allergy Verified 06/11/24 11:27 Review of Systems Review of Systems: CONSTITUTIONAL: Denies fever, chills, or sweats. EYES: Denies visual changes, redness, or discharge. ENT: Reports sinus congestion, right sinus pressure, sore throat, fullness in the ears, thick green drainage from the nares, and sensation of head fullness CARDIOVASCULAR: Denies chest pain, palpitations, or edema. RESPIRATORY: Reports cough. Denies SOB GASTROINTESTINAL: Denies abdominal pain, nausea, vomiting, or diarrhea. GENITOURINARY: Denies dysuria or hematuria. SKIN: Denies rash or itching. MUSCULOSKELETAL: Denies back pain, joint pain, or myalgia. NEUROLOGIC: Denies headache, numbness, dizziness, or weakness. PSYCHIATRIC: Denies anxiety or depression. [facility] Past Medical History Medical History Anxiety Elevated heart rate with elevated blood pressure without diagnosis of hypertension Encounter for anatomic survey Encounter for IUD insertion mirena iud 02/26/2021 Surgical History Surgical History S/P section Family History Family History Grandparent Liver cancer Colon cancer Prostate carcinoma Mother EDS (Cely-Danlos syndrome) Graves disease Fibromyalgia Social History Social History Smoking status: Never smoker Alcohol intake: former Alcohol use details: socially Substance use: never Do You Feel Safe in your Home?: Yes Lack of Transportation: No Lack of Food: Never True Current Housing: I Have Housing Concerned About Future Housing: No Difficulty Paying Gas/Electric Bills: No Difficulty Paying for Meds: No Currently Unemployed: No Education: High School Diploma/GED Difficulty w/ Childcare or Family Care: No Living arrangements: with family Occupation/Education: occupation Gender identity (if verbalized by the patient): Female Sexual Orientation (if Verbalized by the Patient): Straight or Heterosexual Spiritual care concerns: No Course Course Emergency Course: This is a 28-year-old female who presented for evaluation of sick symptoms. Rapid strep negative. Will send throat culture. She declined other testing. Based upon mucopurulent discharge from the nares she meets criteria for bacterial sinusitis. Will treat with Augmentin. This is generally safe during . Increase hydration. Lnfk-ybi-awqmdia agents for symptom management. Follow up with primary provider. Go to the ER for worsening symptoms. Pt in agreement with plan of care. Level of Care: Express Care Visit Vital Signs Vital signs: Vital Signs Oxygen Delivery Room Air 06/11/24 11:14 Temperature 36.8 C 06/11/24 11:19 Pulse Rate 95 06/11/24 11:19 Respiratory Rate 16 06/11/24 11:19 Blood Pressure 120/75 06/11/24 11:19 Pulse Oximetry 100 06/11/24 11:19 Oxygen Delivery Room Air 06/11/24 11:14 Medical Decision Making Vital Signs Vital Signs: Vital Signs Oxygen Delivery Room Air 06/11/24 11:14 Temperature 36.8 C 06/11/24 11:19 Pulse Rate 95 06/11/24 11:19 Respiratory Rate 16 06/11/24 11:19 Blood Pressure 120/75 06/11/24 11:19 Pulse Oximetry 100 06/11/24 11:19 Oxygen Delivery Room Air 06/11/24 11:14 Lab Data Labs: Lab Results 06/11/24 Range/Units 11:59 POC Grp A Strep Screen Negative (Negative) Discharge Plan Discharge Clinical Impression: Sinusitis Patient Disposition: Home, Self-Care Condition: Stable Instructions: Antibiotic Form, Sinusitis (ED) Patient Language: Polish Prescriptions: New amoxicillin-pot clavulanate 875-125 mg tablet 1 tablet PO Q12H Qty: 20 0RF No Action propranolol 10 mg tablet 10 mg PO DAILY Classic 28 mg iron- 800 mcg tablet lamotrigine 25 mg tablet, chewable dispersible PO ondansetron HCl 4 mg tablet PO BYMOUTH Follow-up/Referrals: Pacheco Castaneda MD [Physician] - Time of Disposition: 11:58
== END 2024-06-11 12:07 | disposition home or self-care (01) ==
PROVIDERS: Emergency Provider Nurse Practitioner
DX: O99.512 Diseases of the respiratory system complicating pregnancy, second trimester (principal); Z3A.22 22 weeks gestation of pregnancy; J32.9 Chronic sinusitis, unspecified
CPT/HCPCS: 87081; 87880; 99213; G0463

== ENCOUNTER 2024-07-20 14:03 | Outpatient (CLI) | payer BC, SELFPAY ==
--- OUTSIDE RECORDS SUMMARY | 2024-07-20 14:47 | XMS_ITS | Clinical Summary ---
Author Organization [facility] Address [address] [place] [address] Care Team Providers Care Block Mason Name Role Phone Flora Bang MD Primary Care Provider [phone] Source Comments [facility],non-owned Affiliates and Associated Physician Practices is amultiple site organization consisting of ambulatory clinics and hospital sitesin [place], [place], [place] and [place]. This disclosure is being madepursuant to the Care Everywhere program and may not contain all information available regarding this patient. Last updated 18.[facility] Allergies No known active allergies Medications * Be aware that medications may not be up to date on this document. Alwaysverify current medications with the patient. Medication Sig Dispensed Refills Start Date End Date Status Vit-Fe Fumarate-FA ( VITAMIN) 28-0.8 MG tabletIndications:Pre gnancy Take 1 tablet by mouth once daily Reasons: Active lamoTRIgine (LAMICTAL) 25 MG tablet Take 25 mg by mouth 2 times daily Active Active Problems Problem Noted Date Diagnosed Date Poor growth, affecting management of mother, antepartum condition or complication 10/30/2020 Overview (10/30/2020): Outside US done on 10/20/20 <3rd percentile by Hadlock criteria (previously 16th percentile). US on 10/22/20 w elevated umbilical artery doppler ratios in the mid cord Supervision of high-risk of young prim igravida 10/30/2020 Overview (10/30/2020): A+/Antibody-Neg/Imm/rpr-NR/Hiv-Neg/HBSag-Neg CMV/Parvo - neg 1hr GCT 130 Social History Tobacco Use Types Packs/Day Years Used Date Smoking Tobacco: Never Assessed Sex and Gender Information Value Date Recorded Sex Assigned at Not on file Gender Identity Not on file Sexual Orientation Not on file Plan of Treatment Health Maintenance Due Date Last Done Comments PAP SMEAR 1995 HIV SCREENING 09/07/2010 HEPATITIS C SCREENING 09/03/2013 DTAP/TDAP/TD VACCINES (1 - Tdap) 09/07/2014 HEPATITIS B VACCINE (1 of 3 - 19+ 3-dose series) 09/07/2014 COVID-19 VACCINE ( - 2023-2 5 season) 2024 INFLUENZA VACCINE (#1) 2024 04/29/2020 DEPRESSION SCREENING 06/21/2024 MEDICARE AWV ? CALENDAR YEAR 2024 ZOSTER VACCINE (1 of 2) 09/07/2045 HIB VACCINE Aged Out No longer eligi ble based on patient's age to complete this topic HPV VACCINE Aged Out No longer eligi ble based on patient's age to complete this topic MENINGOCOCCAL (Group B) VACCINE Aged Out No longer eligible based on patient's age to complete this topic MENINGOCOCCAL VACCINE Aged Out No jono nayla eligible based on patient's age to complete this topic PNEUMOCOCCAL VACCINE Aged Out No long er eligible based on patient's age to complete this topic Care Teams Block Mason Relationship Specialty Start Date End Date Flora Bang MD PCP - General 01/16/21
--- OUTSIDE RECORDS SUMMARY | 2024-07-20 14:47 | XMS_ITS | Referral Summary ---
Author Organization [facility] Address [address] [place] [address] Care Team Providers Care Sand Blaster Name Role Phone Flora Bang MD Primary Care Provider [phone] Source Comments [facility],non-owned Affiliates and Associated Physician Practices is amultiple site organization consisting of ambulatory clinics and hospital sitesin [place], [place], [place] and [place]. This disclosure is being madepursuant to the Care Everywhere program and may not contain all information available regarding this patient. Last updated 18.[facility] Allergies No known active allergies Medications * [...] Orientation Not on file Plan of Treatment Not on file Care Teams Sand Blaster Relationship Specialty Start Date End Date Flora Bang MD PCP - General 01/16/21
--- OUTSIDE RECORDS SUMMARY | 2024-07-20 14:47 | XMS_ITS | Patient Health Summary ---
Author Organization [facility] Address [address] [place] [address] Care Team Providers Care Clerk Funeral Detail Name Role Phone Flora Bang MD Primary Care Provider [phone] Note from [facility],non-owned Affiliates and Associated Physician Practices is amultiple site organization consisting of ambulatory clinics and hospital sitesin [place], [place], [place] and [place]. This disclosure is being madepursuant to the Care Everywhere program and may not contain all information available regarding this patient. Last updated 18.[facility] Allergies No known active allergies Medications * Be aware that medications may not be up to date on this document. Alwaysverify current medications with the patient. * Vit-Fe Fumarate-FA ( VITAMIN) 28-0.8 MG tablet Take 1 tablet by mouth once daily Reasons: * lamoTRIgine (LAMICTAL) 25 MG tablet Take 25 mg by mouth 2 times daily Active Problems Problem Noted Date Diagnosed Date Poor growth, affecting management of mother, antepartum condition or complication 10/30/2020 Supervision of high-risk of young prim igravida 10/30/2020 Social History Tobacco Use Types Packs/Day Years Used Date Smoking Tobacco: Never Assessed Sex and Gender Information Value Date Recorded Sex Assigned at Not on file Gender Identity Not on file Sexual Orientation Not on file Procedures * SONOGRAM - COMPLETE(Performed 12/03/2020) Performed for Supervision of high-risk of young primigravida (HCC), Evaluate anatomy not seen on prior sonogram * SONOGRAM - COMPLETE(Performed 11/05/2020) Performed for Poor growth affecting management of mother, antepartum, single or unspecified fetus (HCC), Supervision of high-risk of young primigravida (HCC) Results * SONOGRAM - COMPLETE (12/03/2020 7:43 AM CDT) Only the most recent of2 resultswithin the time period is included. Anatomical Region Laterality Modality Other 12/03/2020 7:43 AM CDT Narrative 12/03/2020 8:55 AM CDT ? [facility] ?PHONE: ??FAX: Pat. Name: ?KELLEY FUNK Pat. No: ?[id number] Study Date: ?? 12/03/2020 ??7:43am , Age: ? 1995, 25 Pregnancies: ?? 1 Height: ? 67 in Weight: ? 175 lb LMP: ?03/21/2020 GA by LMP: ?36w5d GA by Base: ?? 36w5d ?? ALANNAH: 12/26/2020 GA by US: ? 35w5d ?? ALANNAH: 01/02/2021 GA Selected: ??36w5d (LMP) ALANNAH: ?12/26/2020 Referring MD: Cristina Navarrete MD Lay Out Machine Operator: ??Kiaa Rooney RDMS CPT4: ? 00904 BMI: ?27.41 Hist/Ind: ? Incomplete anatomic survey MEASUREMENTS & AGE ? GROWTH EVALUATION Measurement ??GA ? Range ? Srce %for GA Ratios ----- ---- ------- BPD ??8.9 cm 35w6d (60q3u-05g8i) Hadl BPD 40% FL/BPD 0.76 (0.71 - 0.87) HC ??32.9 cm 37w3d (96f2i-34c4z) Hadl HC ??37% FL/AC ??0.22 (0.20 - 0.24) AC ??31.1 cm 35w0d (29p7a-91q3f) Hadl AC ??18% HC/AC ??1.06 (0.92 - 1.11) FL ?? 6.7 cm 34w5d (87b6l-73u1u) Hadl FL ??7% CI ? 0.75 (0.70 - 0.86) GA for sonogram 35w5d (91z7q-89q0j) ?? Weight Estimate: based on (BPD,HC,AC,FL) Avg ?Weight: 2634 gm (2249-3018gm) Had ? : 5lbs, 12oz ? Normal: 2964 gm (2223- 3704gm) Had ? Wt% ? 20% for 36w5d Heart Rate: 144 bpm Amniotic Fluid Index: 16.3cm (07.6-24.6) Q1: 5.7cm ??Q2: 4.4cm ??Q3: 1.4cm ??Q4: 4.8cm ?? EVAL, PLACENTA Presentation: cephalic Umbilical Cord: 3 Vessels Placenta: anterior Heart Rate: 144 bpm Amniotic Fluid Volume: normal Anatomy!Normal!Abnormal!Suboptimal!Prev. Seen!Comments Cranium ?! ?! ?! ?! ? x ?! Mdl (CSP/Thal! ?! ?! ?! ? x ?! Ventricles ?? ! ?! ?! ?! ? x ?! Choroid Plexu! ?! ?! ?! ? x ?! Cerebellum ?? ! ?! ?! ?! ? x ?! Cerebellar Ve! ?! ?! ?! ? x ?! Cisterna M. ??! ?! ?! ?! ? x ?! Orbits ? ! ?! ?! ?! ? x ?! Profile ?! ?! ?! ?! ? x ?! Nasal Bone ?? ! ?! ?! ?! ? x ?! Lip ?! ?! ?! ?! ? x ?! Maxilla ?! ?! ?! ?! ? x ?! Mandible ? ! ?! ?! ?! ? x ?! Neck ? ! ?! ?! ?! ? x ?! Spine ?! ?! ?! ?! ? x ?! Lungs ?! ?! ?! ?! ? x ?! 4 Chamber Hea! ?! ?! ?! ? x ?! LVOT ? ! ?! ?! ?! ? x ?! RVOT ? ! ?! ?! ?! ? x ?! 3 Vessel View! ?! ?! ?! ? x ?! 3 Vessel Trac! ?! ?! ?! ? x ?! Cross-over ?? ! ?! ?! ?! ? x ?! Ductal Arch ??! ?! ?! ?! ? x ?! Aortic Arch ??! ?! ?! ?! ? x ?! Caval View ?? ! ?! ?! ?! ? x ?! Situs ?! ?? x ??! ?! ?! ? x ?! Diaphragm ?! ?! ?! ?! ? x ?! Stomach ?! ?? x ??! ?! ?! ? x ?! Liver ?! ?! ?! ?! ? x ?! Bowel ?! ?! ?! ?! ? x ?! Kidneys ?! ?? x ??! ?! ?! ? x ?! Bladder ?! ?? x ??! ?! ?! ? x ?! 3 Vessel Cord! ?? x ??! ?! ?! ? x ?! Cord In! ?? x ??! ?! ?! ?! Upper Extremi! ?! ?! ?! ? x ?! Hands ?! ?! ?! ? x ?! ?! Lower Extremi! ?? x ??! ?! ?! ?!Unremarkable ?left, right ?previously seen Feet ? ! ?? x ??! ?! ?! ?!Unremarkable ?left, right ?previously seen External Saira! ?? x ??! ?! ?! ?!Female Placental Cor! ?? x ??! ?! ?! ? x ?! CLINICAL SUMMARY Study Number: 2 ?? IMPRESSION: 1) Stephens gestation, 36w5d 2) Overall, biometry is consistent with appropriate growth 3) No abnormalities have been detected on anatomic survey 4) Imaging of the hands was again suboptimal, secondary to size and positioning NOTE: The patient was advised that ultrasound does not allow detection of all structural or chromosomal abnormalities. ?? RECOMMEND: ??Follow up ultrasound only if clinically indicated Thank you for allowing us the opportunity to care for your patient. Nieves Mayen MD <Electronic Signature> ??12/03/2020 08:55am Cristina Navarrete MD [facility] ORDERABLES Care Teams Clerk Funeral Detail Relationship Specialty Start Date End Date Flora Bang MD PCP - General 01/16/21
[2024-07-20 15:39] LABS: Hematocrit 33.8 % (37.0-47.0); Hemoglobin 11.3 g/dL (12.0-15.0); Mean Corpuscular HGB Conc 33.4 g/dl (32-36); Mean Corpuscular Hemoglobin 32.3 pg (26-34); Mean Corpuscular Volume 96.6 fl (80-100); Mean Platelet Volume 10.7 fl (7.4-10.4); Platelet Count Result 237 k/mm3 (150-375); White Blood Count 8.8 K/mm3 (4.5-10.0)
[2024-07-20 16:07] LABS: Glucose 1 Hour PP 50gm Dose 137 mg/dL
[2024-07-21 13:22] LABS: Rapid Plasma Reagin Non-Reactive (NonReactive)
[2024-07-24 07:20] LABS: HIV 1 2 Ag Ab 4th Gen w Rflxs Non-Reactive
== END 2024-07-20 14:04 | disposition home or self-care (01) ==
LOC: ANHLAB 14:04
PROVIDERS: Visit Provider Obstetrics & Gynecology
DX: Z34.82 Encounter for supervision of other normal pregnancy, second trimester (principal); Z3A.00 Weeks of gestation of pregnancy not specified
CPT/HCPCS: 36415; 82947; 85027; 86592; 87389

== ENCOUNTER 2024-07-28 09:10 | Outpatient (CLI) | payer BC, SELFPAY ==
--- OUTSIDE RECORDS SUMMARY | 2024-07-28 09:36 | XMS_ITS | Referral Summary ---
Author Organization [facility] [employer] Address [address] [place] [address] Care Team Providers Care Asphalt Spreader Name Role Phone Flora Bang MD Primary Care Provider [phone] Source Comments [facility] [employer],non-owned Affiliates and Associated Physician Practices is amultiple site organization consisting of ambulatory clinics and hospital sitesin [place], [place], [place] and [place]. This disclosure is being madepursuant to the Care Everywhere program and may not contain all information available regarding this patient. Last updated 18.[facility] [employer] Allergies No known active allergies Medications * [...] of Treatment Not on file Care Teams Asphalt Spreader Relationship Specialty Start Date End Date Flora Bang MD PCP - General 01/16/21
--- OUTSIDE RECORDS SUMMARY | 2024-07-28 09:36 | XMS_ITS | Clinical Summary ---
Author Organization [facility] [employer] Address [address] [place] [address] Care Team Providers Care Out And Out Cigar Maker Hand Name Role Phone Flora Bang MD Primary Care Provider [phone] Source Comments [facility] [employer],non-owned Affiliates and Associated Physician Practices is amultiple site organization consisting of ambulatory clinics and hospital sitesin [place], [place], [place] and [place]. This disclosure is being madepursuant to the Care Everywhere program and may not contain all information available regarding this patient. Last updated 18.[facility] Allergies No known active allergies Medications * [...] - 19+ 3-dose series) 09/07/2014 COVID-19 VACCINE (1 - 2023-2 5 season) 2024 INFLUENZA VACCINE (#1) 2024 04/29/2020 DEPRESSION SCREENING 06/21/2024 MEDICARE AWV CALENDAR YEAR 2024 ZOSTER VACCINE (1 of [...] age to complete this topic Care Teams Out And Out Cigar Maker Hand Relationship Specialty Start Date End Date Flora Bang MD PCP - General 01/16/21
--- OUTSIDE RECORDS SUMMARY | 2024-07-28 09:36 | XMS_ITS | Patient Health Summary ---
Author Organization [facility] Address [address] [place] [address] Care Team Providers Care Clerk Cashier Name Role Phone Flora Bang MD Primary Care Provider [phone] Note from [facility],non-owned Affiliates and Associated Physician Practices is amultiple site organization consisting of ambulatory clinics and hospital sitesin [place], [place], [place] and [place]. This disclosure is being madepursuant to the Care Everywhere program and may not contain all information available regarding this patient. Last updated 18.[facility] Allergies No known active allergies Medications * [...] AM CDT Narrative 12/03/2020 8:55 AM CDT [facility] PHONE: FAX: Pat. Name: KELLEY FUNK Pat. No: [id number] Study Date: 12/03/2020 7:43am , Age: 03 1995, 25 Pregnancies: 1 Height: 67 in Weight: 175 lb LMP: 03/21/2020 GA by LMP: 36w5d GA by Base: 36w5d ALANNAH: 12/26/2020 GA by US: 35w5d ALNANAH: 01/02/2021 GA Selected: 36w5d (LMP) ALANNAH: 12/26/2020 Referring MD: Cristina Navarrete MD Cut Out Press Operator: Kaia Rooney RDMS CPT4: 36532 BMI: 27.41 Hist/Ind: Incomplete anatomic survey MEASUREMENTS & AGE GROWTH EVALUATION Measurement GA Range Srce %for GA Ratios ----- ---- ------- BPD 8.9 cm 35w6d (38k4k-15f5m) Hadl BPD 40% FL/BPD 0.76 (0.71 - 0.87) HC 32.9 cm 37w3d (89f9y-66e2u) Hadl HC 37% FL/AC 0.22 (0.20 - 0.24) AC 31.1 cm 35w0d (91a7l-28p5m) Hadl AC 18% HC/AC 1.06 (0.92 - 1.11) FL 6.7 cm 34w5d (85q2o-15v6f) Hadl FL 7% CI 0.75 (0.70 - 0.86) GA for sonogram 35w5d (76c4d-30t6w) Weight Estimate: based on (BPD,HC,AC,FL) Avg Weight: 2634 gm (2249-3018gm) Had : 5lbs, 12oz Normal: 2964 gm (2223-3704gm) Had Wt% 20% for 36w5d Heart Rate: 144 bpm Amniotic Fluid Index: 16.3cm (07.6-24.6) Q1: 5.7cm Q2: 4.4cm Q3: 1.4cm Q4: 4.8cm EVAL, PLACENTA Presentation: cephalic Umbilical Cord: 3 Vessels Placenta: anterior Heart Rate: 144 bpm Amniotic Fluid Volume: normal Anatomy!Normal!Abnormal!Suboptimal!Prev. Seen!Comments Cranium ! ! ! ! x ! Mdl (CSP/Thal! ! ! ! x ! Ventricles ! ! ! ! x ! Choroid Plexu! ! ! ! x ! Cerebellum ! ! ! ! x ! Cerebellar Ve! ! ! ! x ! Cisterna M. ! ! ! ! x ! Orbits ! ! ! ! x ! Profile ! ! ! ! x ! Nasal Bone ! ! ! ! x ! Lip ! ! ! ! x ! Maxilla ! ! ! ! x ! Mandible ! ! ! ! x ! Neck ! ! ! ! x ! Spine ! ! ! ! x ! Lungs ! ! ! ! x ! 4 Chamber Hea! ! ! ! x ! LVOT ! ! ! ! x ! RVOT ! ! ! ! x ! 3 Vessel View! ! ! ! x ! 3 Vessel Trac! ! ! ! x ! Cross-over ! ! ! ! x ! Ductal Arch ! ! ! ! x ! Aortic Arch ! ! ! ! x ! Caval View ! ! ! ! x ! Situs ! x ! ! ! x ! Diaphragm ! ! ! ! x ! Stomach ! x ! ! ! x ! Liver ! ! ! ! x ! Bowel ! ! ! ! x ! Kidneys ! x ! ! ! x ! Bladder ! x ! ! ! x ! 3 Vessel Cord! x ! ! ! x ! Cord In! x ! ! ! ! Upper Extremi! ! ! ! x ! Hands ! ! ! x ! ! Lower Extremi! x ! ! ! !Unremarkable left, right previously seen Feet ! x ! ! ! !Unremarkable left, right previously seen External Saira! x ! ! ! !Female Placental Cor! x ! ! ! x ! CLINICAL SUMMARY Study Number: 2 IMPRESSION: 1) Stephens gestation, 36w5d 2) Overall, biometry is consistent with appropriate growth 3) No abnormalities have been detected on anatomic survey 4) Imaging of the hands was again suboptimal, secondary to size and positioning NOTE: The patient was advised that ultrasound does not allow detection of all structural or chromosomal abnormalities. RECOMMEND: Follow up ultrasound only if clinically indicated Thank you for allowing us the opportunity to care for your patient. Nieves Mayen MD <Electronic Signature> 12/03/2020 08:55am Cristina Navarrete MD [facility] ORDERABLES Care Teams Clerk Cashier Relationship Specialty Start Date End Date Flora Bang MD PCP - General 01/16/21
[2024-07-28 09:37] LABS: Glucose Fasting Gestational 89 mg/dL (>/=95)
[2024-07-28 11:12] LABS: Glucose 1 Hour Gest 130 mg/dL (>/=180)
[2024-07-28 12:11] LABS: Glucose 2 Hour Gest 104 mg/dL (>/= 155)
[2024-07-28 13:10] LABS: Glucose 3 Hour Gest 105 mg/dL (>/=140)
== END 2024-07-28 09:11 | disposition home or self-care (01) ==
PROVIDERS: Visit Provider Obstetrics & Gynecology
DX: O99.810 Abnormal glucose complicating pregnancy (principal); Z3A.00 Weeks of gestation of pregnancy not specified
CPT/HCPCS: 36415; 82951; 82952

== ENCOUNTER 2024-09-14 16:35 | Outpatient (CLI) | payer BC, SELFPAY ==
--- OUTSIDE RECORDS SUMMARY | 2024-09-14 16:44 | XMS_ITS | Clinical Summary ---
Author Organization [facility] Address [address] [place] [address] Care Team Providers Care Delinquency Prevention Officer Name Role Phone Flora Bang MD Primary Care Provider [phone] Source Comments [facility],non-owned Affiliates and Associated Physician Practices is amultiple site organization consisting of ambulatory clinics and hospital sitesin [place], [place], [place] and [place]. This disclosure is being madepursuant to the Care Everywhere program and may not contain all information available regarding this patient. Last updated 18.[facility] Allergies No known active allergies Medications [...] to complete this topic MENINGOCOCCAL (Group B) VACC INE SHARED DECISION-MAKING Aged Out No longer eligibl e based on patient's age to complete this topic MENINGOCOCCAL GROUPS A/C/Y/W VACCINE Aged Out No longer eligible b ased on patient's age to complete this topic PNEUMOCOCCAL VACCINE Aged Out No long er eligible based on patient's age to complete this topic Care Teams Delinquency Prevention Officer Relationship Specialty Start Date End Date Flora Bang MD PCP - General 01/16/21
[2024-09-14 17:00] VITALS: BP 124/75; PULSE 109
[2024-09-14 17:02] VITALS: BP 122/67; PULSE 105
[2024-09-14 17:16] VITALS: BP 120/76; PULSE 111
[2024-09-14 17:31] VITALS: BP 125/94; PULSE 115
[2024-09-14 17:52] VITALS: BMI 33.0
[2024-09-14 17:54] LABS: OBXCEM ROM Plus Negative (Negative)
== END 2024-09-14 17:45 | disposition home or self-care (01) ==
LOC: ANHOBOP 16:42 → ANHLDR 16:44
PROVIDERS: PCP Internal Medicine; Visit Provider Obstetrics & Gynecology
DX: O42.90 Premature rupture of membranes, unspecified as to length of time between rupture and onset of labor, unspecified weeks of gestation (principal); Z3A.00 Weeks of gestation of pregnancy not specified
CPT/HCPCS: 84112; 99199

== ENCOUNTER 2024-10-07 12:47 | Outpatient (CLI) | payer BC, SELFPAY ==
--- OUTSIDE RECORDS SUMMARY | 2024-10-07 12:51 | XMS_ITS | Clinical Summary ---
Author Organization [facility] Address [address] [address] Care Team Providers Care Hat Blocking Machine Operator Name Role Phone Flora Bang MD Primary Care Provider Source Comments [facility],non-owned Affiliates and Associated Physician Practices is amultiple site organization consisting of ambulatory clinics and hospital sitesin [place], [place], [place] and [place]. This disclosure is being madepursuant to the Care Everywhere program and may not contain all information available regarding this patient. Last updated 18.[facility] [facility] Allergies No known active allergies Medications * Be aware that medications may not be up to date on this document. Alwaysverify current medications with the patient. Vit-Fe Fumarate-FA ( VITAMIN) 28-0.8 MG tabletIndicatio ns: Take 1 tablet by mouth once daily [...] Years Used Date Smoking Tobacco: Never Assessed Comments No Sex and Gender Information Value Date Recorded Sex Assigned at Not on file Legal Sex Female 10:03 AM CDT Gender Identity Not on file Sexual Orientation Not on file Plan of Treatment Health Maintenance Due Date Last Done Comments HIV SCREENING 09/07/2010 HEPATITIS C SCREENING 09/03/2013 DTAP/TDAP/TD VACCINES (1 - Tdap) 09/07/2014 HEPATITIS B VACCINE (1 of 3 - 19+ 3-dose series) 09/07/2014 COVID-19 VACCINE (1 - 2023-2 5 season) 2024 DEPRESSION SCREENING 06/21/2024 INFLUENZA VACCINE (Season Ended) 2025 04/29/20 ZOSTER VACCINE (1 of 2) 09/07/2045 HIB [...] on patient's age to complete this topic Insurance [facility] Care Teams Hat Blocking Machine Operator Relationship Specialty Start Date End Date Flora Bang MD PCP - General 01/16/21
[2024-10-07 13:05] LABS: Hematocrit 32.9 % (37.0-47.0); Hemoglobin 10.4 g/dL (12.0-15.0); Mean Corpuscular HGB Conc 31.6 g/dl (32-36); Mean Corpuscular Hemoglobin 30.1 pg (26-34); Mean Corpuscular Volume 95.4 fl (80-100); Mean Platelet Volume 10.5 fl (7.4-10.4); Platelet Count Result 198 k/mm3 (150-375); Red Blood Count 3.45 M/mm3 (4.2-5.4); Red Cell Distribution Width 13.6 % (11.5-14.5); White Blood Count 9.4 K/mm3 (4.5-10.0)
[2024-10-07 13:53] LABS: Syphilis IgG/IgM Antibody Negative (Negative)
[2024-10-07 13:57] LABS: HIV 1/2 Ab P24 Ag Result Negative (Negative)
== END 2024-10-07 12:48 | disposition home or self-care (01) ==
PROVIDERS: PCP Internal Medicine; Visit Provider Obstetrics & Gynecology
DX: Z34.93 Encounter for supervision of normal pregnancy, unspecified, third trimester (principal); Z3A.00 Weeks of gestation of pregnancy not specified
CPT/HCPCS: 36415; 85027; 86593; 86703; 86850; 86900; 86901; G0432

== ENCOUNTER 2024-10-09 09:49 | Inpatient (IN) | payer BC, SELFPAY ==
[2024-10-09] VITALS (69 sets, daily range): BP systolic 88–121; BP diastolic 49–91; PULSE 72–293; RESP 11–18; TEMP 36.2–36.8; O2SAT 92–100; BMI 33.2
[2024-10-09] MEDS: ACETAMINOPHEN 500 MG TABLET 1000 MG PO (10:16)
[2024-10-09] MEDS: LACTATED RINGERS 1,000 ML 125 ML IV CONT ×2 (10:38→11:35)
--- OUTSIDE RECORDS SUMMARY | 2024-10-09 11:02 | XMS_ITS | Clinical Summary ---
Author Organization [facility] Address [address] [place] [address] Care Team Providers Care Shop Assistant Name Role Phone Flora Bang MD Primary Care Provider Source Comments [facility],non-owned Affiliates and Associated Physician Practices is amultiple site organization consisting of ambulatory clinics and hospital sitesin [place], [place], [place] and [place]. This disclosure is being madepursuant to the Care Everywhere program and may not contain all information available regarding this patient. Last updated 18.[facility] Allergies No known active allergies Medications * [...] patient's age to complete this topic Insurance [facility] Care Teams Shop Assistant Relationship Specialty Start Date End Date Flora Bang MD PCP - General 01/16/21
--- NOTE | 2024-10-09 11:35 | P.PNAN_ITS ---
Anes - Initial Pre Proc Eval Procedure: Operation Date: 10/09/24 12:00 Proposed Procedures p Repeat Section with Bilateral Tubal Sterilization - Cristina Navarrete MD Date/Time: 10/09/24 11:35 Surgeon: Cristina Navarrete MD Pre Op Diagnosis: Patient Data Age: 29 Gender: F Height: 1.7 m Weight: 96.275 kg Last Vital Signs Temp 36.6 C 10/09/24 10:16 Pulse 112 H 10/09/24 11:31 BP 100/68 10/09/24 11:31 Pulse Ox 100 10/09/24 11:31 O2 Del Method Room Air 10/09/24 10:44 Allergies Allergy/AdvReac Type Severity Reaction Status Date / Time No Known Allergies Allergy Verified 10/09/24 10:41 Home Medications ?Medication ?Instructions ?Recorded ?Confirmed ?Type propranolol 10 mg tablet 10 mg PO DAILY 02/22/23 10/09/24 History lamotrigine 25 mg chewable 25 mg PO DAILY 02/23/24 10/09/24 History dispersible tablet ondansetron HCl 4 mg tablet 4 mg PO 02/23/24 10/04/24 History vits no.126-ferrous fum tablet 06/11/24 10/04/24 History 28 mg iron-folic acid 800 mcg tablet (Classic ) Patient hx anesthesia problems: none Family hx anesthesia problems: none Results Review: All pre-operative results and documents have been reviewed as part of the pre- operative evaluation. [facility] Past Medical History Medical History Abnormal glucose tolerance in Encounter for anatomic survey Elevated heart rate with elevated blood pressure without diagnosis of hypertension Anxiety Encounter for IUD insertion mirena iud 02/26/2021 Surgical History Surgical History S/P section Family History Family History Grandparent Liver cancer Colon cancer Prostate carcinoma Mother EDS (Cely-Danlos syndrome) Graves disease Fibromyalgia Social History Social History Smoking status: Former smoker Tobacco type: e-cigarettes/vaping Smoking end date: 12/19/23 Alcohol intake: former Alcohol use details: socially Substance use: never Do You Feel Safe in your Home?: Yes Lack of Transportation: No Lack of Food: Never True Current Housing: I Have Housing Concerned About Future Housing: No Difficulty Paying Gas/Electric Bills: No Difficulty Paying for Meds: No Currently Unemployed: No Education: High School Diploma/GED Difficulty w/ Childcare or Family Care: No Living arrangements: with family Occupation/Education: occupation 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, certified social workers in health care Gender identity (if verbalized by the patient): Female Sexual Orientation (if Verbalized by the Patient): Straight or Heterosexual Spiritual care concerns: No Anes - Eval Final PreProcedure Day of Procedure 10/09/24 11:35 Patient weight: obese Heart: regular rate and rhythm Lungs: clear to auscultation Airway: Mallampati scale class II Neurological: alert and oriented Last oral intake: >/= 8 hours ASA classification: III Emergent: no Anesthetic plan: proceed Anesthesia type and monitoring: regional spinal and standard monitoring Results Review: All pre-operative results and documents have been reviewed as part of the pre- operative evaluation. Informed Consent: The patient's anesthetic plan and its attendant risks and benefits were discussed with the patient/family/POA. Questions were solicited and answers provided to the satisfaction of the patient/family/POA.
--- NOTE | 2024-10-09 11:40 | PM.IMHP ---
H&P: HPI History of Present Illness Date/Time: 10/09/24 11:45 Chief Complaint: repeat Narrative: Kelley is a 29yo @ 39.2wks who presents for scheduled repeat section and bilateral salpingectomy. She has had regular care. She reports good movement. No VB or LOF. Her is complicated by: - Previous x1; for repeat + salpingectomy @ 39wks. - Anxiety Review of Systems Constitutional: Constitutional: Denies chills, Denies fever(s) and Denies headache(s) Eyes: Eyes: Denies change in vision ENT: Denies headache(s) Cardiovascular: Cardiovascular: Denies chest pain and Denies dyspnea Respiratory: Respiratory: Denies dyspnea Genitourinary: Genitourinary: Denies abnormal vaginal bleeding and Denies vaginal discharge Neurologic: Denies headache(s) Psychiatric: Psychiatric: Denies anxiety and Denies depression [facility] Past Medical History Medical History Abnormal glucose tolerance in Encounter for anatomic survey Elevated heart rate with elevated blood pressure without diagnosis of hypertension Anxiety Encounter for IUD insertion mirena iud 02/26/2021 Surgical History Surgical History S/P section Family History Family History Grandparent Liver cancer Colon cancer Prostate carcinoma Mother EDS (Cely-Danlos syndrome) Graves disease Fibromyalgia Social History Social History Smoking status: Former smoker Tobacco type: e-cigarettes/vaping Smoking end date: 12/19/23 Alcohol intake: former Alcohol use details: socially Substance use: never Do You Feel Safe in your Home?: Yes Lack of Transportation: No Lack of Food: Never True Current Housing: I Have Housing Concerned About Future Housing: No Difficulty Paying Gas/Electric Bills: No Difficulty Paying for Meds: No Currently Unemployed: No Education: High School Diploma/GED Difficulty w/ Childcare or Family Care: No Living arrangements: with family Occupation/Education: occupation 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, machine clothing worker Gender identity (if verbalized by the patient): Female Sexual Orientation (if Verbalized by the Patient): Straight or Heterosexual Spiritual care concerns: No Meds Home Medications and Allergies Home Medications ?Medication ?Instructions ?Recorded ?Confirmed ?Type propranolol 10 mg tablet 10 mg PO DAILY 02/22/23 10/09/24 History lamotrigine 25 mg chewable 25 mg PO DAILY 02/23/24 10/09/24 History dispersible tablet ondansetron HCl 4 mg tablet 4 mg PO 02/23/24 10/04/24 History vits no.126-ferrous fum tablet 06/11/24 10/04/24 History 28 mg iron-folic acid 800 mcg tablet (Classic ) Allergies Allergy/AdvReac Type Severity Reaction Status Date / Time No Known Allergies Allergy Verified 10/09/24 10:41 Exam Const: General: cooperative, comfortable, no acute distress and obese Nutritional Appearance: obese Orientation/consciousness: patient oriented x3 Resp: Effort & Inspection: normal respiratory effort Cardio: Rate: regular rate GI: GI Palp: No abdominal tenderness : Other: FHT's: 140's/ mod abelardo/ + accels/ no decels - cat 1 TOCO: irregular ctxs Cervix: 0.5/thick/-3 Membranes: intact Presentation: cephalic Skin: General skin exam: normal color Neuro: General: patient oriented x3 Extrem: General: normal to inspection Psych: Appearance: grossly normal Affect: normal affect Attitude: cooperative Assessment and Plan Assessment and plan (1) H/O section: Code(s): Z98.891 - History of uterine scar from previous surgery Status: Acute Plan - H/o x1; desires to proceed with repeat section. - Pt no longer desires future fertility and would also like to proceed with bilateral salpingectomy - Risks and benefits discussed in detail - Ancef 2g IV
--- NOTE | 2024-10-09 11:42 | WPDHPUPDATE1 ---
History and Physical Update Update Date/Time: 10/09/24 11:42 History and Physical has been reviewed, including an updated exam of the patient. There are NO changes in the patient's condition. Risks, benefits, and alternatives have been discussed and questions answered. Patient agrees to proceed with repeat section with bilateral salpingectomy.
--- NOTE | 2024-10-09 11:42 | LDADM ---
This patient, Kelley Brewer, was admitted to Labor/Delivery/Recovery 120 on 10/09/24 at 09:49. Plans for labor, pain management and were discussed with patient. Patient/family oriented to hospital policies and general routines including ID bracelet, bed and alarms, visiting hours, pain management, procedures, bathroom and other care routines, personal items, smoking policy, room service/diet and guest tray routines, security routines, and visiting hours. Patient/Family are encouraged to report perceived risks to care and to ask questions if they do not understand what they are told or what they should do. See [facility] for further documentation.
[2024-10-09] MEDS: ONDANSETRON INJ 4 MG/2 ML VIAL IV PUSH (11:43)
[2024-10-09] MEDS: FAMOTIDINE 20 MG/2 ML VIAL IV PUSH (11:43)
--- NOTE | 2024-10-09 13:08 | W.PM.OBCSD ---
OB - Delivery Note Procedure Delivery date: 10/09/24 Pre-op diagnosis: Previous Delivery and Other (undesired future fertility) Post-op Diagnosis: Same Procedure Performed: Repeat Secondary branch: low cervical, transverse and Tubal Ligation Surgeon: Cristina Navarrete MD Anesthesia type: Spinal Description of Procedure/Findings: Female infant, cephalic, clear fluid, normal uterus/fallopian tubes/ovaries. Good hemostasis at end of case. Specimen: Yes (left and right fallopian tubes) Estimated Blood Loss: 480 Pathology: Yes (left and right fallopian tubes) Complications: No immediate complications Condition: Stable Disposition: Floor Baby Date of : 10/09/24 Time of : 12:26 Gestational Age by Date: 39 (.2) Infant gender: Female Weight (pounds): 8 Weight (ounces): 3 presentation: vertex Placenta delivery description: Expressed Cord Vessel Description: 3 Vessels, Nuchal Cord (x2), Loose, Reduced and Delayed Cord Clamping score one minute: 8 score five minutes: 8 Narrative: Kelley was counseled on all risks and benefits in detail. She was taken to the operating room where spinal was placed. She was then prepped and draped in the normal sterile fashion. She received 2g Ancef and a time out was performed. A Pfannenstiel incision was made in the skin and carried down to the underlying fascia. The fascia was nicked on either side of the midline and the fascial incision was extended laterally and superiorly using curved High scissors. The fascia was then elevated using Mira clamps and the underlying rectus muscles were dissected off the fascia, superiorly and inferiorly. The rectus muscles were then in the midline and the peritoneum was entered sharply. Once adequate exposure was obtained, a Mobius self retractor was placed within the abdomen. A bladder flap was created. A low transverse incision was made on the lower uterine segment and copious amounts of clear fluid was noted. The occiput was brought to the hysterotomy and the head was easily delivered. The nuchal x2 was reduced without issue. The shoulders and body then followed without complications. The had spontaneous cry and the mouth and nose were bulb suctioned. Delayed cord clamping was performed. The cord was then doubly clamped and cut and the was handed off to the awaiting pediatric nurse. A segment of the cord was collected for cord gases. The remaining cord blood was collected for typing. With pitocin infusing, the placenta delivered with gentle traction on the cord without complications. The uterus was then cleared out of all clots and debris using a clean, moist lap. The hysterotomy was then repaired in a running, interlocking fashion using 0 Vicryl. A second layer imbricating suture was then made using 0 Vicryl. The hysterotomy was found to be hemostatic and good uterine tone was noted. The bilateral adnexa were examined and found to be normal. The left fallopian tube was grasped with a [place] and using the LigaSure device the mesosalpinx was serially clamped, coagulated, and transected until the proximal end of the fallopian tube was reached. The fallopian tube was then crossclamped with the LigaSure device, it was coagulated and then transected. The fallopian tube was then removed from the abdomen and sent to pathology. The same procedure was then performed on the right side without complication. The pelvis was cleared of all clots and fluid. The hysterotomy was examined and a small amount of bleeding was noted on the right apex of the incision. A figure of 8 using 0 Vicryl was placed and good hemostasis was then noted. The Mobius retractor was removed from the abdomen. The peritoneum, muscle, and fascia were examined and made hemostatic with Bovie cautery. The fascia was then repaired using a 0 Vicryl suture in a running fashion. The subcutaneous tissue was then irrigated and made hemostatic with Bovie cautery. The subcutaneous tissue was then reapproximated using 2-0 Vicryl. The skin was then closed using 4-0 Monocryl in a running subcuticular fashion. An Aquacel dressing was then placed over the incision. Sponge, lap, needle and instrument counts were correct at the end of the procedure x2. The patient tolerated the procedure well and was taken to recovery in a stable condition.
[2024-10-09] MEDS: OXYTOCIN 30 UNITS/NS 500 ML 30 UNITS/500 ML BAG 125 UNITS IV CONT (14:00)
--- NOTE | 2024-10-09 15:30 | PC.NURSE ---
Patient transferred to post room #287 via stretcher. Support person present. Oriented to unit, room, information board, rooming in, admission packet and security measures. Patient verbalizes understanding.
--- NOTE | 2024-10-09 15:45 | PC.NURSE ---
1545 When asked about immunizations, per patient she did not receive the TDap or RSV vaccine with .
--- NOTE | 2024-10-09 17:00 | PC.NURSE ---
Introductions were made, then consulted with patient to assess needs related to . Discussed with mother her?plans to feed?her and the?experience so far. Infant has feed well and mother reports no pain with latch. Resources provided for inpatient and outpatient services with the feeding sheet, mom/baby guide and name written on the communication board. Mother voiced understanding of information and will call if there is a request for assistance. Reported to the Primary RN.
[2024-10-09] MEDS: ACETAMINOPHEN 325 MG TABLET 650 MG PO ×2 (17:47→23:18)
[2024-10-09] MEDS: LANOLIN (LANSINOH) 7.5 GM CREAM 1 APPLIC TOPICAL (17:47)
[2024-10-09] MEDS: SIMETHICONE 80 MG TAB.CHEW PO (17:47)
[2024-10-09] MEDS: KETOROLAC 15 MG/ML VIAL (*BKC) IV PUSH ×2 (17:47→23:18)
[2024-10-09] MEDS: DOCUSATE SODIUM 100 MG CAPSULE PO (17:47)
[2024-10-09] MEDS: DEXTROSE 5%/0.45% SOD CHL 1,000 ML 125 ML IV CONT (17:50)
--- NOTE | 2024-10-09 18:01 | PC.NURSE ---
174 IV (Post ) Oxytocin 30 units/NS 500mls @ 125mls per hour were completed (were not charted on so this RN could not complete) and her other IV fluids were scanned and started, see AUG.
[2024-10-10] VITALS: BP 99/58; PULSE 81; RESP 16; TEMP 36.5; O2SAT 99
[2024-10-10 05:15] VITALS: BP 102/60; PULSE 72; RESP 16; TEMP 36.5; O2SAT 100
[2024-10-10] MEDS: ACETAMINOPHEN 325 MG TABLET 650 MG PO ×3 (05:29→17:05)
[2024-10-10] MEDS: KETOROLAC 15 MG/ML VIAL (*BKC) IV PUSH ×2 (05:29→11:29)
[2024-10-10 05:49] LABS: Basophils Absolute Auto 0.1 K/mm3 (0.0-0.1); Basophils Percent Auto 0.5 % (0.2-1.2); Eosinophils Absolute Auto 0.1 K/mm3 (0-0.3); Eosinophils Percent Auto 1.3 % (0-4.4); Hematocrit 29.4 % (37.0-47.0); Hemoglobin 9.4 g/dL (12.0-15.0); Immature Granulocyte Absolute 0.07 K/mm3 (0.00-0.031); Immature Granulocyte Percent A 0.7 % (0-0.5); Lymphocytes Percent Auto 19.7 % (18.3-44.2); Mean Corpuscular Hemoglobin 30.4 pg (26-34); Mean Corpuscular Volume 95.1 fl (80-100); Mean Platelet Volume 11.3 fl (7.4-10.4); Monocytes Absolute Auto 0.8 K/mm3 (0.1-0.6); Monocytes Percent Auto 7.9 % (2.6-8.5); Neutrophils Absolute Auto 7.1 K/mm3 (1.3-6.7); Neutrophils Percent Auto 69.9 % (45.5-73.1); Platelet Count Result 171 k/mm3 (150-375); Red Blood Count 3.09 M/mm3 (4.2-5.4); Red Cell Distribution Width 13.7 % (11.5-14.5); White Blood Count 10.2 K/mm3 (4.5-10.0)
--- NOTE | 2024-10-10 07:35 | P.PNOB_ITS ---
OB - PN: Subj Subjective Date/time seen: 10/10/24 07:17 Narrative: POD#1 Kelley reports doing well today. 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 Her pain is controlled. She is tolerating regular diet and has passed gas. She has not ambulated and zuleta was removed this AM; has not voided yet. She denies any issues with her incision. She is breast feeding. OB - PN: Obj Data Labs 10/10/24 05:16 OB - PN A/P Assessment and Plan (1) S/P repeat low transverse : Code(s): Z98.891 - History of uterine scar from previous surgery Status: Acute (2) Status post bilateral salpingectomy: Code(s): Z90.79 - Acquired absence of other genital organ(s) Status: Acute Plan day: 1 Plan: routine care Comments: - PO pain meds - Regular diet - Ambulation and hydration encouraged - Continue putting baby to breast q2-3hr - Awaiting spontaneous void; if nothing in 6 hours, will check bladder scan and place zuleta as needed - IV venofer once Time Spent With Patient Time: Total time spent is greater than 50% in coordination of care (as documented) at patient's floor/unit and/or counseling patient: Review of Systems 2 Constitutional: Constitutional: Denies chills, Denies fever(s) and Denies headache(s) Eyes: Eyes: Denies change in vision ENT: Denies dizziness and Denies headache(s) Cardiovascular: Cardiovascular: Denies chest pain, Denies palpitations and Denies dyspnea Respiratory: Respiratory: Denies cough and Denies dyspnea Gastrointestinal: Gastrointestinal: Denies nausea and Denies vomiting Genitourinary: Comments: normal bleeding Neurologic: Denies dizziness and Denies headache(s) Endocrine: Endocrine: Denies palpitations Exam 2 Const: General: cooperative, comfortable and no acute distress O rientation/consciousness: patient oriented x3 Resp: Effort & Inspection: normal respiratory effort Auscultation: clear to auscultation bilaterally Cardio: Rate: regular rate GI: Inspection: non-distended and incision (covered with clean dressing) GI Palp: Yes abdominal tenderness (appropriate) and Yes Soft to palpation A uscultation: normal bowel sounds : Other: fundus firm Skin: General skin exam: normal color Neuro: General: patient oriented x3 Extrem: General: normal to inspection Psych: Appearance: grossly normal Affect: normal affect Attitude: c ooperative
[2024-10-10 07:50] VITALS: BP 99/63; PULSE 78; RESP 18; TEMP 36.7; O2SAT 99
[2024-10-10] MEDS: IRON SUCROSE COMPLEX 400 MG, IRON SUCROSE COMPLEX 100 MG in SODIUM CHLORIDE 0.9% IV 250 ML 78.57 MG IVPB (07:57)
[2024-10-10] MEDS: DOCUSATE SODIUM 100 MG CAPSULE PO ×2 (09:59→17:05)
[2024-10-10] MEDS: lamoTRIgine 25 MG TABLET PO (09:59)
[2024-10-10] MEDS: MULTIVIT/MIN/PREN/FOL AC/IRON TABLET 1 TAB PO (09:59)
[2024-10-10] MEDS: SIMETHICONE 80 MG TAB.CHEW PO ×2 (09:59→17:05)
[2024-10-10] MEDS: POLYSACCHARIDE IRON COMPLEX 150 MG CAPSULE PO ×2 (09:59→17:05)
[2024-10-10 10:02] VITALS: PULSE 78
--- NOTE | 2024-10-10 12:00 | PC.NURSE ---
Met with patient to let her know there are services available to her if needed. She states that she can latch infant independently and without pain. Their biggest struggle so far has been that baby is sleepy. We reviewed normal behavior and that parents can expect baby to be more awake in the evening/nighttime and will most likely desire to cluster feed tonight. Dad is hold baby skin to skin currently. Encouraged patient to call out for any assistance needed. Patient agrees to this plan.
[2024-10-10 12:52] VITALS: BP 112/68; PULSE 76; RESP 16; TEMP 36.9; O2SAT 99
--- NOTE | 2024-10-10 14:31 | WPDANLDPN2 ---
Anes-Prog Note L&D Date/Time: 10/10/24 14:31 Comfortable throughout: section Neuraxial method: spinal Epidural/Spinal procedure site: clean & non-tender Neuro status: Neuro function grossly intact. Cardiovascular status: normal Respiratory status: normal Airway patency: baseline Mental status: baseline Post-Op hydration status: normal Vital Signs: Last Vital Signs Temp 36.9 C 10/10/24 12:52 Pulse 76 10/10/24 12:52 Resp 16 10/10/24 12:52 BP 112/68 10/10/24 12:52 Pulse Ox 99 10/10/24 12:52 O2 Del Method Room Air 10/10/24 07:40 Pain score (VAS): 3 I/O: Intake & Output 10/09/24 10/10/24 10/10/24 23:59 07:59 15:59 Intake Total 575 Output Total 2500 1800 Balance -2500 -1225 Post-procedural complaints: none Patient feedback: Patient satisfied with anesthetic care.
--- NOTE | 2024-10-10 14:32 | WPDANLDNPN2 ---
Anes-Prog Note L&D-Neuraxial Date/Time: 10/10/24 14:32 Neuraxial medications: intrathecal PF morphine Opiod-related complaints: none Patient feedback: Patient satisfied with post-operative pain management.
[2024-10-10] MEDS: IBUPROFEN 600 MG TABLET PO (17:05)
[2024-10-10 19:30] VITALS: BP 109/71; PULSE 90; RESP 16; TEMP 36.8; O2SAT 100
[2024-10-11] MEDS: ACETAMINOPHEN 325 MG TABLET 650 MG PO ×3 (00:39→14:33)
[2024-10-11] MEDS: IBUPROFEN 600 MG TABLET PO ×3 (00:39→14:33)
--- NOTE | 2024-10-11 06:41 | PM.OBDSVD ---
DS: Admitting Diagnosis Discharge Date 10/11/24 Admitting Diagnosis h/o section Undesired future fertility DS: Discharge Diagnosis Discharge Diagnosis (1) S/P repeat low transverse : Code(s): Z98.891 - History of uterine scar from previous surgery Status: Acute (2) Status post bilateral salpingectomy: Code(s): Z90.79 - Acquired absence of other genital organ(s) Status: Acute OB - DS: Summary OB Procedures : Ultrasound OB Procedures Intrapartum: low cervical, transverse and Other (bilateral salpingectomy) OB Procedures: : Other (venofer IV once) Peripartum Data Infant Delivery Method: Section Procedures: Procedures Operation Date: 10/09/24 12:00 Actual Procedure Side Surgeon p Repeat Section with Bilateral Tubal Sterilization Not Applicable Cristina Navarrete MD complications: none Sayner 1: Gender: Female Disposition of : home Status at Discharge Functional status at discharge: independent ambulation Overall status at discharge: patient is back to baseline Time Spent with Patient Time attestation: Total time spent providing and/or coordinating discharge services: Time spent: Less than 30 minutes Exam Const: General: cooperative, comfortable, no acute distress and obese Orientation/consciousness: patient oriented x3 Resp: Effort & Inspection: normal respiratory effort Auscultation: clear to auscultation bilaterally Cardio: Rate: regular rate GI: Inspection: non-distended and incision (covered with clean dressing) GI Palp: No abdominal tenderness and Yes Soft to palpation Auscultation: normal bowel sounds : Other: fundus firm Skin: General skin exam: normal color Neuro: General: patient oriented x3 Extrem: General: normal to inspection Psych: Appearance: grossly normal Affect: normal affect Attitude: cooperative DS: Data Data Completed and Pending Pending studies at discharge: Pending at discharge 10/09/24 14:09 Surgical [PTH] Routine Discharge Plan Discharge Attending physician on discharge: Cristina Navarrete Discharging Clinician: Cristina Navarrete Anticipated Discharge Date/Time: 10/12/24 08:00 Patient Disposition: Home Activity: may shower and pelvic rest Diet: regular Patient Instructions: (DC) Patient Language: Mongolian Stand Alone Forms: General Discharge Information Follow-up/Referrals: Cristina Navarrete MD [Physician] - 4 Weeks Discharge Medications: New acetaminophen 325 mg Tablet 650 mg PO Q6H Qty: 60 0RF docusate sodium 100 mg Capsule 100 mg PO BID Qty: 90 0RF hydrocodone-acetaminophen 5-325 mg Tablet 1 tablet PO Q3H PRN (Reason: Breakthrough Pain Rated 4-6) Qty: 24 0RF ibuprofen 600 mg Tablet 600 mg PO Q6H Qty: 40 0RF Continued propranolol 10 mg tablet 10 mg PO DAILY Classic 28 mg iron- 800 mcg tablet lamotrigine 25 mg tablet, chewable dispersible 25 mg PO DAILY ondansetron HCl 4 mg tablet 4 mg PO Date of admission: 10/09/24 09:49 Primary Care Provider: Debra,Shantal Admitting Provider: Cristina Navarrete Attending physician on admission: Cristina Navarrete Condition: Stable
[2024-10-11 08:10] VITALS: BP 109/64; PULSE 81; RESP 16; TEMP 36.9; O2SAT 99
[2024-10-11] MEDS: MULTIVIT/MIN/PREN/FOL AC/IRON TABLET 1 TAB PO (08:24)
[2024-10-11] MEDS: SIMETHICONE 80 MG TAB.CHEW PO ×2 (08:24→14:33)
[2024-10-11] MEDS: POLYSACCHARIDE IRON COMPLEX 150 MG CAPSULE PO (08:24)
[2024-10-11] MEDS: lamoTRIgine 25 MG TABLET PO (08:24)
[2024-10-11] MEDS: DOCUSATE SODIUM 100 MG CAPSULE PO (08:24)
--- NOTE | 2024-10-11 11:50 | PC.NURSE ---
Consulted with mother concerning needs and she shared her ability to independently latch infant optimally without pain. Mother is feeding appropriately for growth of and understands stimulating to eat if needed. Infant has had appropriate feedings in the last 24 hours meets the outcomes for weight, output, blood sugar and jaundice at this time. Reinforced understanding of milk production, transition of milk, signs of adequate intake, transition of stool, prevention/relief of engorgement, plugged ducts, mastitis, responsive watching for feeding cues, the different methods of stimulating to breastfeed 1-3 hours after the start of the last feeding, community resources, and when to call a provider using the resource of the feeding sheet along with the mom and baby guide. Mother voiced understanding of the information shared, is confident to continue effectively her infant at home, when to call for assistance, denies any additional assistance or education at this time. Reported to the Primary RN.
[2024-10-12 08:29] VITALS: BP 119/73; PULSE 88; RESP 18; TEMP 36.5; O2SAT 99
== END 2024-10-11 17:45 | disposition home or self-care (01) | DRG 785 ==
LOC: ANHLDR 09:52 → ANHOB2 15:52
PROVIDERS: Admitting Provider Obstetrics & Gynecology; PCP Internal Medicine; Visit Provider Obstetrics & Gynecology
PROC: 10D00Z1 Extraction of Products of Conception, Low, Open Approach (ICD-10-PCS; CPT 59514; principal; 2024-10-09 12:00)
DX: O34.211 Maternal care for low transverse scar from previous cesarean delivery (principal); Z37.0 Single live birth; Z3A.39 39 weeks gestation of pregnancy; O69.81X0 Labor and delivery complicated by cord around neck, without compression, not applicable or unspecified; Z30.2 Encounter for sterilization
CPT/HCPCS: 36415; 85025; 88302; A9270; J1756; J1885; J2274; J2371; J2405; J2590; J7050; J7120